=== PATIENT | female | born 1930 | race Caucasian/White ===

== ENCOUNTER → 2017-06-28 | Outpatient (CLI) | payer OTHER ==
[~2017-06-28] MED LIST: DOCU100C31 PO; FENO160T PO; FIBER PO; METF-384 PO; MULT-208 PO; NUTR-977 PO; POLY335019 PO
[2017-06-28 08:26] LABS: HEMATOCRIT 32.7 % (37-47); MEAN CELL VOLUME 87.2 fL (80-100); MEAN CORPUSCULAR HEMOGLOBIN 29.3 pg (25-34); MEAN CORPUSCULAR HGB CONC 33.6 g/dl (32-36); PLATELET COUNT 205 K/uL (130-400); WHITE BLOOD COUNT 5.37 K/uL (4.8-10.8)
[2017-06-28 08:36] LABS: BLOOD UREA NITROGEN 23 mg/dl (7-18); CALCIUM 9.1 mg/dl (8.5-10.1); CARBON DIOXIDE 28 mmol/L (21-32); CREATININE 0.71 mg/dl (0.60-1.20); GLUCOSE 89 mg/dl (70-99); POTASSIUM 3.9 mmol/L (3.5-5.1); SODIUM 141 mmol/L (136-145)
== END | disposition home or self-care (01) ==
LOC: C.LABWYN 08:00
PROVIDERS: ATTEND Internal Medicine
DX: E11.9 Type 2 diabetes mellitus without complications (principal); E78.5 Hyperlipidemia, unspecified; F03.90 Unspecified dementia, unspecified severity, without behavioral disturbance, psychotic disturbance, mood disturbance, and anxiety; I05.9 Rheumatic mitral valve disease, unspecified; M81.0 Age-related osteoporosis without current pathological fracture

== ENCOUNTER 2017-07-06 10:35 | Emergency (ER) | payer OTHER ==
[~2017-07-06] VITALS: Ht 162.6 cm; Wt 58.4 kg
[2017-07-06 10:46] VITALS: Ht 162.6 cm; Wt 58.4 kg
[2017-07-06] MEDS ORDERED: SODIUM CHLORIDE 0.9% 1000ML 1,000 ML IV STA (11:05)
--- NOTE | 2017-07-06 11:17 | EMERGENCY ROOM VISIT NOTE ---
History Report prepared by Sneha: Brian Negron Under the Supervision of: Dr. Chilo Correia D.O. First contact with patient: 11:03 Chief Complaint: DIARRHEA Stated Complaint: DIARRHEA, CONFUSION,HAND TRMORS,LACK OF APPETITE Nursing Triage Summary: "Going to the bathroom all the time". HArd to control with incontinence which is new. Diarrhea started slowly on 06/27 but the past three to four days have been worse. History of Present Illness The patient is a 87 year old female who presents to the Emergency Room with complaints of multiple episodes of diarrhea that began about 1 week ago, but has became more frequent over the past couple of days. She has a past medical history of dementia, borderline diabetes, and a hysterectomy. This HPI is provided by the patient's daughter secondary to her dementia. Prior to two weeks ago, the patient lived on her own. However, two weeks ago she began living in an assisted living facility. Last week, she began not eating like she usually does. Also, her daughter believes that her confusion has been worsening recently as well. The patient is also experiencing about 8 episodes of diarrhea in a span of 2 hours with some intermittent incontinence. She denies any bloody or black colors seen in the stool. She denies any fevers, chills, cough, nausea , vomiting, or leg swelling. She notes that the patient's hands have a tremor as of last week as well which is new. She does not take any blood thinners. The patient was given one dose of Diflucan recently, but no other medication changes. Source of History: family Onset: 1 week ago Position: other (GI) Symptom Intensity: Multiple episodes Quality: other (Diarrhea) Timing: intermittent Associated Symptoms: No fevers, No cough, No nausea, No vomiting, No melena , No hematochezia Note: The patient's daughter believes that her confusion is worsened. She is also experiencing hand tremors. Review of Systems See HPI for pertinent positives & negatives. A total of 10 systems reviewed and were otherwise negative. Past Medical & Surgical Medical Problems: (1) Borderline diabetes (2) Dementia Family History Omitted secondary to the patient's age. Social History Smoking Status: Never Smoker Drug Use: none Marital Status: single Housing Status: lives alone, assisted living Occupation Status: retired Current/Historical Medications Scheduled Enteral Nutrition Formula (Ensure Plus Vanilla), 1 CAN PO BID Fenofibrate (Tricor), 160 MG PO DAILY Metformin Hcl (Glucophage), 1,000 MG PO BID Multiple Vitamins W/ Minerals (Daily Multi), 1 TAB PO DAILY Polyethylene Glycol 3350 (Miralax), 17 GM PO DAILY Scheduled PRN Docusate Sodium (Docusate Sodium), 1 CAP PO DAILY PRN for Constipation Fiber Laxative (Fiber Laxative), 3 CAP PO BID PRN for Constipation Allergies Coded Allergies: Penicillins (Verified Allergy, Unknown, HIVES, 07/06/17) Risedronate (Verified Adverse Reaction, Unknown, GI SYMPTOMS, 07/06/17) Physical Exam Vital Signs Date Time Temp Pulse Resp B/P (MAP) Pulse Ox O2 Delivery O2 Flow Rate FiO2 07/06/17 15:27 36.8 75 18 103/42 97 07/06/17 14:20 75 18 103/42 97 Room Air 07/06/17 12:27 72 16 133/62 Room Air 07/06/17 10:46 36.8 123 18 135/78 95 Room Air Physical Exam GENERAL: Patient is awake, alert, and in no acute distress. Patient is resting comfortably and showing no signs of anxiety EYES: The conjunctivae are clear. The pupils are round and reactive. EARS, NOSE, MOUTH AND THROAT: The nose is without any evidence of any deformity. Mucous membranes are dry tongue is midline NECK: The neck is nontender and supple. RESPIRATORY: Normal respiratory effort is noted there is no evidence of wheezing rhonchi or rales CARDIOVASCULAR: Regular rate and rhythm noted there no murmurs rubs or gallops normal S1 normal S2 GASTROINTESTINAL: The abdomen is soft. Bowel sounds are present in all quadrants. Abdomen is nontender MUSCULOSKELETAL/EXTREMITIES: There is no evidence of gross deformity full range of motion is noted in the hips and shoulders SKIN: There is no obvious evidence of any rash. There are no petechiae, pallor or cyanosis noted. NEUROLOGIC: Patient is at baseline according to her daughter. Medical Decision & Procedures ER Provider Diagnostic Interpretation: Radiology results as stated below per my review and radiologist interpretation: CT OF THE HEAD WITHOUT CONTRAST CLINICAL HISTORY: Altered mental status. COMPARISON STUDY: No previous studies for comparison. CT DOSE: 537.48 mGy.cm TECHNIQUE: Helical axial images of the head were obtained without IV contrast. Automated exposure control was utilized for the study. A dose lowering technique was utilized adhering to the principles of ALARA. FINDINGS: No acute intracranial hemorrhage, midline shift or mass effect is present. Ventricular system is unremarkable for age. Basilar cisterns are patent. There are no extra-axial collections. There is mild atrophy and mild small vessel disease. There are no findings to suggest acute dural sinus thrombosis or acute territorial infarct. There are no significant calvarial abnormalities. Visualized portions of the sinuses and the mastoid air cells are clear. IMPRESSION: No acute intracranial findings. Electronically signed by: Hamlet Dias M.D. 07/06/2017 11:40 AM Dictated Date/Time: 07/06/2017 11:37 AM PA CHEST RADIOGRAPH AND UPRIGHT AND SUPINE AP RADIOGRAPHS OF THE ABDOMEN CLINICAL HISTORY: Diarrhea. Confusion. COMPARISON STUDY: No previous studies for comparison. FINDINGS: Lung volumes are normal. There is no pneumothorax or pleural effusion. There is no evidence for pulmonary edema. Cardiac size is normal. There is mild upper mediastinal widening. There is no free air. There is no evidence for a bowel obstruction. There is a large amount of stool within the rectum. There is a moderate amount stool within the colon. IMPRESSION: 1. No free air or evidence of bowel obstruction. 2. Large amount of stool within the rectum and moderate amount of stool within the colon consistent with fecal retention. 3. No acute cardiopulmonary findings. 4. Mild nonspecific upper mediastinal widening. 5. Possible cholelithiasis. Electronically signed by: Hamlet Dias M.D. 07/06/2017 12:36 PM Dictated Date/Time: 07/06/2017 12:32 PM Laboratory Results 07/06/17 11:10 Red Blood Count 4.35, Mean Corpuscular Volume 87.1, Mean Corpuscular Hemoglobin 29.2, Mean Corpuscular Hemoglobin Concent 33.5, Mean Platelet Volume 11.2, Neutrophils (%) (Auto) 76.4, Lymphocytes (%) (Auto) 9.0, Monocytes (%) (Auto) 14.2, Eosinophils (%) (Auto) 0.1, Basophils (%) (Auto) 0.1, Neutrophils # (Auto ) 6.87, Lymphocytes # (Auto) 0.81, Monocytes # (Auto) 1.28, Eosinophils # (Auto ) 0.01, Basophils # (Auto) 0.01 07/06/17 11:10 Test 07/06/17 11:10 07/06/17 12:00 White Blood Count 9.00 K/uL (4.8-10.8) Red Blood Count 4.35 M/uL (4.2-5.4) Hemoglobin 12.7 g/dL (12.0-16.0) Hematocrit 37.9 % (37-47) Mean Corpuscular Volume 87.1 fL (80-100) Mean Corpuscular Hemoglobin 29.2 pg (25-34) Mean Corpuscular Hemoglobin Concent 33.5 g/dl (32-36) Platelet Count 215 K/uL (130-400) Mean Platelet Volume 11.2 fL (7.4-10.4) Neutrophils (%) (Auto) 76.4 % Lymphocytes (%) (Auto) 9.0 % Monocytes (%) (Auto) 14.2 % Eosinophils (%) (Auto) 0.1 % Basophils (%) (Auto) 0.1 % Neutrophils # (Auto) 6.87 K/uL (1.4-6.5) Lymphocytes # (Auto) 0.81 K/uL (1.2-3.4) Monocytes # (Auto) 1.28 K/uL (0.11-0.59) Eosinophils # (Auto) 0.01 K/uL (0-0.5) Basophils # (Auto) 0.01 K/uL (0-0.2) RDW Standard Deviation 43.8 fL (36.4-46.3) RDW Coefficient of Variation 13.7 % (11.5-14.5) Immature Granulocyte % (Auto) 0.2 % Immature Granulocyte # (Auto) 0.02 K/uL (0.00-0.02) Prothrombin Time 10.6 SECONDS (9.0-12.0) Prothromb Time International Ratio 1.0 (0.9-1.1) Activated Partial Thromboplast Time 26.3 SECONDS (21.0-31.0) Partial Thromboplastin Ratio 1.0 Anion Gap 6.0 mmol/L (3-11) Est Creatinine Clear Calc Drug Dose 41.5 ml/min Estimated GFR () 72.9 Estimated GFR (Non- 62.9 BUN/Creatinine Ratio 35.2 (10-20) Calcium Level 9.8 mg/dl (8.5-10.1) Magnesium Level 1.5 mg/dl (1.8-2.4) Total Bilirubin 0.4 mg/dl (0.2-1) Direct Bilirubin 0.1 mg/dl (0-0.2) Aspartate Amino Transf (AST/SGOT) 17 U/L (15-37) Alanine Aminotransferase (ALT/SGPT) 24 U/L (12-78) Alkaline Phosphatase 34 U/L (45-117) Total Creatine Kinase 142 U/L (26-192) Creatine Kinase MB 1.0 ng/ml (0.5-3.6) Creatine Kinase MB Ratio 0.7 (0-3.0) Troponin I < 0.015 ng/ml (0-0.045) Total Protein 7.2 gm/dl (6.4-8.2) Albumin 3.7 gm/dl (3.4-5.0) Lipase 92 U/L (73-393) Thyroid Stimulating Hormone (TSH) 0.136 uIu/ml (0.300-4.500) Free Thyroxine 1.52 ng/dl (0.80-1.60) Urine Color DK YELLOW Urine Appearance CLEAR (CLEAR) Urine pH 5.0 (4.5-7.5) Urine Specific [place] 1.024 (1.000-1.030) Urine Protein NEG (NEG) Urine Glucose (UA) NEG (NEG) Urine Ketones TRACE (NEG) Urine Occult Blood NEG (NEG) Urine Nitrite NEG (NEG) Urine Bilirubin NEG (NEG) Urine Urobilinogen NEG (NEG) Urine Leukocyte Esterase NEG (NEG) Laboratory results per my review. Medications Administered Medications (Trade) Dose Ordered Sig/Natali Route Start Time Stop Time Status Last Admin Dose Admin Sodium Chloride 1,000 ml @ 999 mls/hr Q1H1M STAT IV 07/06/17 11:05 07/06/17 12:05 DC 07/06/17 11:05 999 MLS/HR Magnesium Sulfate (Magnesium Sulfate) 2 gm NOW STAT IV 07/06/17 12:00 07/06/17 12:01 DC 07/06/17 12:30 2 GM Miscellaneous (Soap Suds Enema) 1 ea ONE STAT [place] 07/06/17 13:00 07/06/17 13:02 DC 07/06/17 13:00 1 EA ECG Per My Interpretation Indication: altered mental status Rate (beats per minute): 99 Rhythm: sinus rhythm Findings: PAC, PVC, other (Diffuse t-wave flattening) Comparison ECG Date: no prior available ED Course 1103: The patient was evaluated in room C3. A complete history and physical examination were performed. 1105: Ordered NSS 1,000 ml @ 999 mls/hr IV 1200: Ordered Magnesium Sulfate 2 gm IV 1300: Ordered Soap Suds Enema 1 ea [place] 1510: Upon reevaluation, the patient is resting. I discussed the results and treatment plan with her daughter. She verbalized agreement of the treatment plan. The patient was discharged home. Medical Decision Differential diagnosis: Etiologies such as metabolic, infection, hypo/hyperglycemia, electrolyte abnormalities, cardiac sources, intracerebral event, toxicologic, neurologic, as well as others were entertained. Nursing notes reviewed. Additional history is obtained from the patient's daughter. The patient is an 87-year-old female who presented to the emergency department for evaluation of diarrhea. The patient has been ongoing with loose bowel movements for quite some time. She has severe dementia and much of the history was obtained from the daughters. On exam the patient did not have a surgical abdomen and radiographically the patient has severe fecal impaction. She was treated with disimpaction as well as enema in the emergency department with good results. She was also treated with IV magnesium. I discussed the patient' s laboratory and radiographic studies with her daughters. The patient was started on MiraLAX. She was encouraged to follow-up with a primary care physician through the [facility] as soon as possible and return if symptoms change worsen or the need arises. Medication Reconcilliation Current Medication List: was personally reviewed by me Blood Pressure Screening Patient's blood pressure: Elevated blood pressure Blood pressure disposition: Referred to PCP Impression Primary Impression: Fecal impaction Additional Impression: Hypomagnesemia Scribe Attestation The scribe's documentation has been prepared under my direction and personally reviewed by me in its entirety. I confirm that the note above accurately reflects all work, treatment, procedures, and medical decision making performed by me. Departure Information Dispostion Home / Self-Care Prescriptions Polyethylene Glycol 3350 (MIRALAX) 1 Pow Pow 17 GM PO DAILY, #527 GM Prov: Chilo Correia, 07/06/17 Referrals BRODY CABRERA (PCP) Forms HOME CARE DOCUMENTATION FORM, IMPORTANT VISIT INFORMATION, WORK / SCHOOL INSTRUCTIONS Patient Instructions Constipation, [facility] Additional Instructions Continue all medications as prescribed. Follow-up with primary care physician as soon as possible. Problem Qualifiers
[2017-07-06 11:33] LABS: BASO % 0.1 %; BASO ABS # 0.01 K/uL (0-0.2); EOS % 0.1 %; EOS ABS # 0.01 K/uL (0-0.5); HEMATOCRIT 37.9 % (37-47); HEMOGLOBIN 12.7 g/dL (12.0-16.0); IG# 0.02 K/uL (0.00-0.02); LYMPH ABS # 0.81 K/uL (1.2-3.4); MEAN CELL VOLUME 87.1 fL (80-100); MEAN CORPUSCULAR HEMOGLOBIN 29.2 pg (25-34); MEAN CORPUSCULAR HGB CONC 33.5 g/dl (32-36); MEAN PLATELET VOLUME 11.2 fL (7.4-10.4); MONO % 14.2 %; MONO ABS # 1.28 K/uL (0.11-0.59); NEUT % 76.4 %; NEUT ABS # 6.87 K/uL (1.4-6.5); PLATELET COUNT 215 K/uL (130-400); RED CELL DISTRIBUTION WIDTH CV 13.7 % (11.5-14.5); RED CELL DISTRIBUTION WIDTH SD 43.8 fL (36.4-46.3)
--- NOTE | 2017-07-06 11:41 | DIAGNOSTIC IMAGING REPORT ---
CT OF THE HEAD WITHOUT CONTRAST CLINICAL HISTORY: Altered mental status. COMPARISON STUDY: No previous studies for comparison. CT DOSE: 537.48 mGy.cm TECHNIQUE: Helical axial images of the head were obtained without IV contrast. Automated exposure control was utilized for the study. A dose lowering technique was utilized adhering to the principles of ALARA. FINDINGS: No acute intracranial hemorrhage, midline shift or mass effect is present. Ventricular system is unremarkable for age. Basilar cisterns are patent. There are no extra-axial collections. There is mild atrophy and mild small vessel disease. There are no findings to suggest acute dural sinus thrombosis or acute territorial infarct. There are no significant calvarial abnormalities. Visualized portions of the sinuses and the mastoid air cells are clear. IMPRESSION: No acute intracranial findings. Electronically signed by: Hamlet Dias M.D. 07/06/2017 11:40 AM Dictated Date/Time: 07/06/2017 11:37 AM
[2017-07-06 11:42] LABS: PTT PATIENT 26.3 SECONDS (21.0-31.0)
[2017-07-06 11:52] LABS: ALBUMIN 3.7 gm/dl (3.4-5.0); ALT/SGPT 24 U/L (12-78); AST/SGOT 17 U/L (15-37); BLOOD UREA NITROGEN 30 mg/dl (7-18); CALCIUM 9.8 mg/dl (8.5-10.1); CARBON DIOXIDE 29 mmol/L (21-32); CREATININE 0.84 mg/dl (0.60-1.20); GLUCOSE 127 mg/dl (70-99); LIPASE 92 U/L (73-393); POTASSIUM 3.9 mmol/L (3.5-5.1); SODIUM 140 mmol/L (136-145)
[2017-07-06] MEDS ORDERED: MAGNESIUM SULFATE 1GM / D5W 1 GM BAG IV STA (12:00)
[2017-07-06 12:01] LABS: ALKALINE PHOSPHATASE 34 U/L (45-117); TOTAL PROTEIN 7.2 gm/dl (6.4-8.2)
[2017-07-06] MEDS ORDERED: MULT-208 PO (12:27)
[2017-07-06] MEDS ORDERED: FENO160T PO (12:27)
[2017-07-06] MEDS ORDERED: METF-384 PO (12:27)
[2017-07-06] MEDS ORDERED: NUTR-977 PO (12:27)
[2017-07-06] MEDS ORDERED: DOCU100C31 PO (12:27)
[2017-07-06] MEDS ORDERED: FIBER PO (12:27)
--- NOTE | 2017-07-06 12:37 | DIAGNOSTIC IMAGING REPORT ---
PA CHEST RADIOGRAPH AND UPRIGHT AND SUPINE AP RADIOGRAPHS OF THE ABDOMEN CLINICAL HISTORY: Diarrhea. Confusion. COMPARISON STUDY: No previous studies for comparison. FINDINGS: Lung volumes are normal. There is no pneumothorax or pleural effusion. There is no evidence for pulmonary edema. Cardiac size is normal. There is mild upper mediastinal widening. There is no free air. There is no evidence for a bowel obstruction. There is a large amount of stool within the rectum. There is a moderate amount stool within the colon. IMPRESSION: 1. No free air or evidence of bowel obstruction. 2. Large amount of stool within the rectum and moderate amount of stool within the colon consistent with fecal retention. 3. No acute cardiopulmonary findings. 4. Mild nonspecific upper mediastinal widening. 5. Possible cholelithiasis. Electronically signed by: Hamlet Dias M.D. 07/06/2017 12:36 PM Dictated Date/Time: 07/06/2017 12:32 PM
[2017-07-06] MEDS ORDERED: SOAP SUDS ENEMA PR STA (13:00)
[2017-07-06] MEDS ORDERED: POLY335019 PO (14:44)
[2017-07-06 15:27] VITALS: BP 103/42; PULSE 75; TEMP 36.8; O2SAT 97
== END 2017-07-06 15:28 | disposition home or self-care (01) ==
LOC: C.EDB 10:37 → C.EDC 15:28
DX: K56.41 Fecal impaction (principal); E83.42 Hypomagnesemia; F03.90 Unspecified dementia, unspecified severity, without behavioral disturbance, psychotic disturbance, mood disturbance, and anxiety; R73.03 Prediabetes; Z79.84 Long term (current) use of oral hypoglycemic drugs; Z88.0 Allergy status to penicillin; Z88.8 Allergy status to other drugs, medicaments and biological substances

== ENCOUNTER → 2017-07-18 | Outpatient (CLI) | payer OTHER | END | disposition home or self-care (01) | LOC: C.LABWYN 11:27 | PROVIDERS: ATTEND Internal Medicine | DX: E03.9 Hypothyroidism, unspecified (principal) ==

== ENCOUNTER → 2017-09-10 | Outpatient (CLI) | payer OTHER | END | disposition home or self-care (01) | LOC: C.LABWYN 17:24 | PROVIDERS: ATTEND Internal Medicine | DX: E03.9 Hypothyroidism, unspecified (principal) ==

== ENCOUNTER → 2017-12-16 | Outpatient (CLI) | payer OTHER ==
[~2017-12-16] MED LIST changes: -POLY335019 PO; +SENN-65 PO
== END | disposition home or self-care (01) ==
LOC: C.LAB1850 13:41
PROVIDERS: ATTEND Internal Medicine Endocrinology, Diabetes & Metabolism
DX: E05.90 Thyrotoxicosis, unspecified without thyrotoxic crisis or storm (principal)

== ENCOUNTER 2019-01-29 17:36 | Inpatient (IN) ==
[2019-01-29 19:02] LABS: Basophils # (auto) 0.02 K/uL (0-0.2); Basophils % (auto) 0.3 %; Eosinophils # (auto) 0.03 K/uL (0-0.5); Eosinophils % (auto) 0.4 %; Hemoglobin 9.6 g/dL (12.0-16.0); Immature Granulocytes # (auto) 0.01 K/uL (0.00-0.02); Immature Granulocytes % (auto) 0.1 %; Lymphocytes % (auto) 15.6 %; Mean Corpuscular Hemoglobin 28.5 pg (25-34); Mean Corpuscular Hgb Conc 33.1 g/dL (32-36); Mean Corpuscular Volume 86.1 fL (80-100); Mean Platelet Volume 10.5 fL (7.4-10.4); Monocytes # (auto) 0.82 K/uL (0.11-0.59); Monocytes % (auto) 11.6 %; Neutrophils # (auto) 5.07 K/uL (1.4-6.5); Platelet Count 195 K/uL (130-400); RDW Coefficient of Variation 15.3 % (11.5-14.5); RDW Standard Deviation 48.1 fL (36.4-46.3); Red Blood Count 3.37 M/uL (4.2-5.4); White Blood Count 7.05 K/uL (4.8-10.8)
--- NOTE | 2019-01-29 19:11 | CT Scan Report ---
CT OF THE HEAD WITHOUT CONTRAST CLINICAL HISTORY: Fall. COMPARISON STUDY: No previous studies for comparison. CT DOSE: 773.57 mGy.cm TECHNIQUE: Helical axial images of the head were obtained without IV contrast. Automated exposure con trol was utilized for the study. A dose lowering technique was utilized adhering to the principles o f ALARA. FINDINGS: No acute intracranial hemorrhage, midline shift or mass effect is present. The ventricular system is stable. The basilar cisterns are patent. No extra-axial collections are present. There are no findings to suggest acute dural sinus thrombosis or acute territorial infarct. No significant calv arial abnormalities are present. Visualized portions of the sinuses and mastoid air cells are clear. White matter hypodensities represent small vessel disease. IMPRESSION: 1. No acute intracranial findings. 2. No calvarial fracture. Electronically signed by: Hamlet Dias M.D. 01/29/2019 7:10 PM
[2019-01-29 19:13] LABS: Prothrombin Time 9.9 Seconds (9.0-12.0)
[2019-01-29 19:20] LABS: Alanine Aminotransferase 15 U/L (12-78); Albumin Level 3.3 gm/dl (3.4-5.0); Aspartate Aminotransferase 16 U/L (15-37); BUN Creatinine Ratio 29.2 (10-20); Blood Urea Nitrogen 29 mg/dl (7-18); Calcium 9.8 mg/dl (8.5-10.1); Carbon Dioxide 25 mmol/L (21-32); Chloride 104 mmol/L (98-107); Est GFR (African American) 60.1; Est GFR (Non-African American) 51.9; Glucose 126 mg/dl (70-99); Potassium 4.1 mmol/L (3.5-5.1); Sodium 137 mmol/L (136-145)
[2019-01-29 19:23] LABS: Albumin Globulin Ratio 1.1 (0.9-2); Alkaline Phosphatase 32 U/L (45-117); Bilirubin,Total 0.4 mg/dl (0.2-1); Total Protein 6.3 gm/dl (6.4-8.2)
--- NOTE | 2019-01-29 19:29 | XRay Report ---
XR knee RT 3V CLINICAL HISTORY: Fall. COMPARISON: None FINDINGS: Alignment of the right knee is anatomic. No acute fracture is visualized. There is no righ t knee joint effusion. IMPRESSION: No acute fracture or joint effusion within the right knee. Electronically signed by: Hamlet Dias M.D. 01/29/2019 7:27 PM
--- NOTE | 2019-01-29 19:31 | XRay Report ---
RIGHT HAND 3 VIEWS HISTORY: Right hand pain. fall eval for fx COMPARISON: None. FINDINGS: There is no fracture or dislocation. Mild dorsal soft tissue swelling at the base of the camp nd. Moderate degenerative changes within the right hand. Deformity within the fifth digit is likely c hronic. No radiopaque foreign bodies. The bones are osteopenic. IMPRESSION: 1. No acute fractures within the right hand. 2. Deformity within the right fifth digit is likely chronic. Clinical correlation recommended. Electronically signed by: Bill Davis M.D. 01/29/2019 7:30 PM
--- NOTE | 2019-01-29 19:36 | XRay Report ---
XR hip RT min 2V CLINICAL HISTORY: Fall. COMPARISON: None FINDINGS: Note is made of an acute displaced fracture of the greater trochanter of the right femur. Fracture is displaced 1.2 cm. A lucency projects over the intertrochanteric region which could reflec t a nondisplaced intertrochanteric portion. Lesser trochanter appears intact. IMPRESSION: Acute mildly displaced fracture of the greater trochanter with possible nondisplaced inte rtrochanteric component. A CT of the right hip could be obtained. Electronically signed by: Hamlet Dias M.D. 01/29/2019 7:35 PM
--- NOTE | 2019-01-29 19:38 | XRay Report ---
XR femur RT 2V routine, XR tibia fibula RT 2V CLINICAL HISTORY: fall eval for injury. Right leg pain. COMPARISON STUDY: None. FINDINGS: The visualized pelvic bones are intact. No dislocation within the right femur or right lowe r leg. There is a distracted fracture at the tip of the greater trochanter. This demonstrates up to 1 cm of distraction. This does not extend to the intertrochanteric location. Equivocal intertrochanter ic hairline fracture. No fracture or dislocation within the right tibia or right fibula. IMPRESSION: 1. Distracted fracture at the tip of the greater trochanter. There is an equivocal intertrochanteric hairline fracture. Recommend dedicated right hip CT for further evaluation. 2. No fracture or dislocation within the right lower leg. Electronically signed by: Bill Davis M.D. 01/29/2019 7:36 PM
[2019-01-29 20:49] LABS: Appearance Urine Cloudy (Clear); Bacteria Urine Automated Negative (Negative); Bilirubin Urine Negative (Negative); Blood Urine Negative (Negative); Color Urine Yellow; Glucose Urine UA Negative (Negative); Ketones Urine Negative (Negative); Leukocyte Esterase Urine Negative (Negative); Nitrite Urine Negative (Negative); Protein Urine Negative (Negative); Specific Gravity Urine 1.017 (1.000-1.030); Urobilinogen Urine Negative (Negative); WBC Urine Automated 0 /hpf (0-5)
--- NOTE | 2019-01-29 22:04 | CT Scan Report ---
RIGHT HIP CT CT DOSE: 325.84 mGy.cm HISTORY: right hip fx TECHNIQUE: Multiaxial CT images of the right hip were performed and reformatted in the sagittal and c oronal plane without the use of contrast. A dose lowering technique was utilized adhering to the [facility]. COMPARISON: Right hip 01/29/2019. FINDINGS: The bladder is decompressed by Felix catheter. There is a large stool ball within the rectu m which measures 11 cm in diameter. No dislocation within the right hip. The visualized pelvic bones are intact. Soft tissue contusion within the lateral right hip. Comminuted fracture at the greater tr ochanter which demonstrates up to 11 mm of posterior displacement. The fracture line extends posterio rly at the base of the greater trochanter and along the posterior cortex of the base of the femoral n kris. The fracture does not clearly extend to the lesser trochanter. IMPRESSION: Comminuted fracture within the greater trochanter which extends to the base of the greater trochanter and along the posterior cortex of the base of the right femoral neck. Orthopedic consultation is sug gested for possible internal fixation given the involvement of the femoral neck base. Electronically signed by: Bill Davis M.D. 01/29/2019 10:03 PM
[2019-01-29] MEDS ORDERED: LOPERAMIDE HCL 2 MG CAP PO PRN (22:05)
[2019-01-29] MEDS ORDERED: DOCUSATE SODIUM 100 MG CAP PO PRN (22:05)
[2019-01-29] MEDS ORDERED: ONDANSETRON INJ 2 MG/ML 2 ML VIAL IV PRN (22:05)
[2019-01-29] MEDS ORDERED: NON-FORMULARY MEDICATION (Food Supplemt, Lactose-Reduced [Ensure] 1 EA) PO SCH (22:05)
[2019-01-29] MEDS ORDERED: DOCUSATE SODIUM/SENNA 50/8.6MG TAB PO PRN (22:05)
[2019-01-29] MEDS ORDERED: ACETAMINOPHEN 325 MG TAB PO PRN (22:05)
[2019-01-29] MEDS ORDERED: MoRPHine SULFATE 2 MG/ML CARP IV PRN (22:05)
--- NOTE | 2019-01-29 22:15 | History and Physical Report ---
DATE OF ADMISSION: 01/29/2019 CHIEF COMPLAINT: Right hip fracture, ambulatory dysfunction. HISTORY OF PRESENT ILLNESS: This is an 88-year-old female with past medical history significant for severe dementia, oriented to name only, recognizes family. Ambulates without any help. Currently [facility] resident, history of diabetes, hyperlipidemia, history of brief episode of atrial fibrillation recently, on diltiazem, not on anticoagulation, who was brought in because of ambulatory dysfunction. The patient started to limp yesterday little bit but able to walk okay, but today she was having difficulty ambulating and have painful right leg movements, so she was brought in here and x-ray shows right hip fracture. The patient does not remember any falling down. She has severe dementia. She can tell her name, but she does not know where she is. Can recognizes family.Denies any complaints. Daughter is in the room, patient is a DNI as per daughter. The patient recently was in [place] for vacation and admitted to hospital from sepsis with urinary tract infection and biliary stones with cholangitis and at that time biliary stents were placed and surgery was not done because of her risk factors and biliary stent was recently removed here in [facility]. During that admission, she also had brief atrial fibrillation for a day, but was not put on anticoagulation but diltiazem is continued. She recently also had her upper row of teeth removed and dentures placed so she is eating only soft foods now and she is supposed to see a dentist again. Otherwise, she swallows okay. No fever, no chills. Sleeps okay, usually ambulates without any help. Recently the ambulation was slightly weak because of the recent sepsis. She is constipated and requires stool softeners. Normal bladder movements. Afebrile. No cough. Vision is okay. Hearing is okay. Currently resting comfortably and hemodynamically stable. Denies any pain. Could not get any history from the patient as the patient has severe dementia. ALLERGIES: ACTONEL AND PENICILLINS. PAST MEDICAL HISTORY: As mentioned above. PAST SURGICAL HISTORY: She has ERCP. She has total hysterectomy. Surgical removal of the upper teeth. MEDICATIONS: The patient currently on diltiazem 120 mg p.o. daily, Colace 100 mg p.o. daily p.r.n., Ensure 1 can p.o. b.i.d., fenofibrate 160 mg p.o. a.m., Imodium p.r.n., metformin 1000 mg p.o. a.m., methimazole 5 mg p.o. 5 times a week and methimazole 2.5 mg 2 times a week, multivitamin 1 tablet daily, Senokot-S 2 tablets daily p.r.n. FAMILY HISTORY: Father had diabetes. Mother had stroke. Brother had diabetes. SOCIAL HISTORY: , currently living at [facility]. No smoking history. Alcohol, used to drink 1, rarely in the past. No drug use. REVIEW OF SYMPTOMS: As per HPI. Review of systems unobtainable as the patient has severe dementia. PHYSICAL EXAMINATION: GENERAL: The patient is alert and awake and oriented to name only, not in acute distress. VITAL SIGNS: Temperature 37.1, pulse 85, respiratory rate 18, blood pressure 111/71, oxygen 94% room air. HEENT: No pallor, no icterus. Pupils equal, round, reactive to light. NECK: No JVD, no neck masses, no carotid bruits. CARDIOVASCULAR: S1, S2 heard, regular rate and rhythm. Murmur in mitral area. RESPIRATORY SYSTEM: Normal AP diameter. No accessory muscle use. No wheezing, no crackles. ABDOMEN: Soft, bowel sounds present, nontender. No distention. CENTRAL NERVOUS SYSTEM: Alert and oriented to name only. Moves extremities. EXTREMITIES: Right lower extremity is slightly shortened. No edema, no erythema seen. LABORATORIES DATA: WBC 7, hemoglobin 9.6, hematocrit 29, platelets 195. PT 9.9, INR 1, APTT 26. Sodium 137, potassium 4.1, chloride 104, bicarbonate 25, BUN 29, creatinine 0.9, serum glucose 126, calcium 9.8, total bilirubin 0.4, AST 16, ALT 15, alkaline phosphatase 32. Urinalysis negative. Hand x-ray right side, no acute fractures identified. Tibia, fibula x-ray on the right side distracted fracture of the tip of the greater trochanter. Knee x-ray on the right, no acute fracture or effusion seen. Right hip x-ray, acute mildly displaced fracture of the greater trochanter with possible nondisplaced intertrochanteric component. A CT of the right hip could be obtained. CT of the head, no acute intracranial findings. Right femur x-ray, displaced fracture tip of the greater trochanter. There is equivocal intertrochanteric hairline fracture. Recommend to get a right hip CT for further evaluation. EKG: Sinus rhythm with sinus arrhythmia with occasional PVCs at a rate of 72, left axis deviation, no acute ST changes seen. Chest Xray: No acute findings. ASSESSMENT AND PLAN: This is an 88-year-old female with severe dementia, presents with right ambulatory dysfunction and right hip fracture. 1. Ambulatory dysfunction, right hip fracture. The patient has severe dementia, could not tell that if she fell or not, she has some bruise on the right knee,. She is resident of [facility]. She has some limping yesterday, but today she could not walk, painful right lower extremity movements. Imaging studies shows right hip fracture of the greater trochanter, possible nondisplaced intertrochanteric component, will also get a CT of the right hip. We will keep n.p.o. after midnight, gentle fluids, IV morphine p.r.n. Because the patient has severe dementia and the age, the patient will be at least moderate risk for any procedures and will consult Orthopedics for possible surgical intervention. Ortho consulted and notified. 2. History of episode of atrial fibrillation when she was sick at vacation with cholangitis and sepsis. On diltiazem, which is continued, not on anticoagulation, at that time a biliary stent was placed, which was recently removed. She still has gallstones, but surgery was not contemplated at that time. 3. History of diabetes, on metformin. Hold metformin, place insulin sliding scale.follow hba1c levels 4. History of hyperthyroidism. Continue methimazole. 5. History of hyperlipidemia: Continue fenofibrate. 6. Severe dementia. Monitor for any delirium. The family says she has history of taking IV lines out. 7. Anemia chronic. Hb 9.6. Baseline 10-11. Will follow heme occult. Follow labs. 8. Mitral valve prolapse? Will follow routine echo. 9. Deep venous thrombosis prophylaxis. Could not place the SCDs because of the hip fracture and no anticoagulation placed because of the plan for any surgical procedures. Further deep venous thrombosis prophylaxis as per Orthopedics. Admit to medical floor. PT and OT prior to discharge. Expect discharge back to [facility] when the patient is stable. Social Service to help with discharge planning. 10.. Code status: DNI as per my discussion with the daughter. SANDEEP
[2019-01-29] MEDS: SODIUM CHLORIDE 0.9% 1000ML 1,000 ML IV SCH (22:35)
--- NOTE | 2019-01-29 23:12 | Emergency Department Note ---
Entered by Rayna Tubbs acting as a scribe for History of Present Illness General Chief complaint: Fall Stated complaint: FELL, CANT WALK Source: family (daughter) Limitations: other (Dementia and severe memory loss) History of Present Illness Onset (ago): day(s) (yesterday) Location: right (leg ) Pain Consistency: + other (after a suspected fall) Quality: + other (right leg pain) Associated symptoms: + other (Negative neck pain, abdominal pain, difficulty ambulating, pain in her right leg); no chest pain The patient is a 88 year old female who presents to the ED with complaints of right leg pain beginning yesterday. She is accompanied by her daughter who reports her mother lives at [facility] and has dementia. She thinks she probably fell yesterday. Yesterday, she reports staff told her that her mother was limping and today, it worsened. Her daughter states her mother's right knee and femur appear to be hurting and her right knee is bruised. Her daughter denies her mother having any fevers or vomiting. The patient denies any neck pain, chest pain, abdominal pain, SOB, difficulty ambulating, pain in her right leg. Pt is not on any blood thinners. HPI and ROS due to the patients dementia. Home Medications Home Medications Medication Instructions Recorded Confirmed Type fenofibrate 160 mg PO QAM 11/13/18 01/29/19 History loperamide [Imodium A-D] 2 mg PO BID PRN 11/13/18 01/29/19 History metformin 1,000 mg PO QAM 11/13/18 01/29/19 History methimazole 5 mg PO 5XWK 11/13/18 01/29/19 History multivitamin [Daily-Pierre] 1 tab PO DAILY 11/13/18 01/29/19 History Ensure 1 ea PO BID 12/20/18 01/29/19 History diltiazem HCl 120 mg PO QAM 12/20/18 01/29/19 History docusate sodium [Doc-Q-Lace] 100 mg PO DAILY PRN 12/20/18 01/29/19 History methimazole 2.5 mg PO 2XWK 12/20/18 01/29/19 History sennosides-docusate sodium 2 tab PO DAILY PRN 12/20/18 01/29/19 History [Senna-S] Allergies Allergy/AdvReac Type Severity Reaction Status Date / Time Penicillins Allergy Intermediate HIVES Verified 01/29/19 18:25 risedronate sodium AdvReac Intermediate GI SYMPTOMS Verified 01/29/19 18:25 Past Med/Surg History Medical History Borderline diabetes (Chronic) Dementia (Chronic) daughters, Vielka & Toya (POA) to sign any paperwork for patient (per [facility] staff) Diabetes mellitus, type 2 niddm Hyperlipidemia Hyperthyroidism Mitral valve disorder Osteoporosis Surgical History History of ERCP stent placed on common bile duct (reason for procedure 01/2019) History of hysterectomy Family History Other No pertinent family history Social History Preferred Language: Hong Konger Communication Ability: Effective 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 Other (HPI and ROS due to the patients dementia) Physical Exam Vital Signs Vital Signs - 24 hr 01/29/19 17:43 01/29/19 19:50 Temperature 37.1 C Temperature Source Oral Sepsis Recent Fever Within 48 Hours No Sepsis New/Unexplained Change in Mental Status No Sepsis Action Taken by Nursing No Action Required Pulse Rate 90 Pulse Rate [Apical] 85 Respiratory Rate 20 18 Blood Pressure 112/58 L Blood Pressure [Right Arm] 111/71 Blood Pressure Mean 76 Blood Pressure Mean [Right Arm] 84 Pulse Oximetry 97 94 Oxygen Delivery Method Room Air Room Air Constitutional: Vital signs reviewed. Eyes: Pupils are equal round reactive to light. Conjunctiva are noninjected. ENT: Pharynx is clear without erythema or exudate. Mucous membranes are moist. Neck supple without meningeal signs. Normocephalic. Atraumatic Respiratory: Clear to auscultation bilaterally. Breath sounds are equal bilaterally. Cardiovascular: Regular rate and rhythm. No rubs or gallops. GI: Soft, nondistended and nontender. Bowel sounds are present. Musculoskeletal: No discrete tenderness to the RLE but pain with ROM of the knee and hip. Bruise to the right anterior lower knee. No joint laxity. No tenderness to the ankle. Integumentary: No cyanosis. Neurological: The patient is awake and alert. No focal deficits. Psychiatric: Normal affect. Course 175: Past medical records reviewed. The patient was evaluated in room C11. A complete history and physical exam was performed. 2006: [facility] The patient will be evaluated by him for further management. Administered Medications Sodium Chloride (Nss 1000ml) 1,000 mls @ 75 mls/hr IV .[id number] BEVERLY Stop: 02/28/19 22:04 Last Admin: 01/29/19 22:35 Dose: 75 mls/hr Documented by: [id number] Medical Decision Making Differential Diagnosis The differential diagnoses include hip fracture, femur fracture, strain, pelvis fracture, head injury, anemia, fall, as well as others were entertained. Medical Records Attestation: I reviewed the patient's medical records. I did perform a limited focused review of portions of the patient's old chart on the electronic medical record. The patient has had no recent pertinent visits to this hospital. Home Medications Current Medication List: was personally reviewed by me Laboratory Data Attestation: I reviewed the patient's lab results. Result diagrams: 01/29/19 18:42 01/29/19 18:42 Lab Results 01/29/19 01/29/19 01/29/19 Range/Units 18:42 18:42 18:42 WBC 7.05 (4.8-10.8) K/uL RBC 3.37 L (4.2-5.4) M/uL Hgb 9.6 L (12.0-16.0) g/dL Hct 29.0 L (37-47) % MCV 86.1 (80-100) fL MCH 28.5 (25-34) pg MCHC 33.1 (32-36) g/dL RDW Std Deviation 48.1 H (36.4-46.3) fL RDW Coeff of Joshua 15.3 H (11.5-14.5) % Plt Count 195 (130-400) K/uL MPV 10.5 H (7.4-10.4) fL Immature Gran % (Auto) 0.1 % Neut % (Auto) 72.0 % Lymph % (Auto) 15.6 % Free[place] % (Auto) 11.6 % Eos % (Auto) 0.4 % Baso % (Auto) 0.3 % Immature Gran # (Auto) 0.01 (0.00-0.02) K/uL Neut # (Auto) 5.07 (1.4-6.5) K/uL Lymph # (Auto) 1.10 L (1.2-3.4) K/uL Free[place] # (Auto) 0.82 H (0.11-0.59) K/uL Eos # (Auto) 0.03 (0-0.5) K/uL Baso # (Auto) 0.02 (0-0.2) K/uL PT 9.9 (9.0-12.0) Seconds INR 1.0 (0.9-1.1) APTT 26.0 (21.0-31.0) Seconds PTT Ratio 1.0 Sodium 137 (136-145) mmol/L Potassium 4.1 (3.5-5.1) mmol/L Chloride 104 (98-107) mmol/L Carbon Dioxide 25 (21-32) mmol/L Anion Gap 8.0 (3-11) BUN 29 H (7-18) mg/dl Creatinine 0.98 (0.6-1.2) mg/dl Est Cr Clr Drug Dosing Not Reportable Est GFR ( Amer) 60.1 Est GFR (Non-Af Amer) 51.9 BUN/Creatinine Ratio 29.2 H (10-20) Glucose 126 H (70-99) mg/dl Calcium 9.8 (8.5-10.1) mg/dl Total Bilirubin 0.4 (0.2-1) mg/dl AST 16 (15-37) U/L ALT 15 (12-78) U/L Alkaline Phosphatase 32 L (45-117) U/L Total Protein 6.3 L (6.4-8.2) gm/dl Albumin 3.3 L (3.4-5.0) gm/dl Globulin 3.0 (2.5-4.0) gm/dl Albumin/Globulin Ratio 1.1 (0.9-2) Urine Color Urine Appearance (Clear) Urine pH (4.5-7.5) Ur Specific [place] (1.000-1.030) Urine Protein (Negative) Urine Glucose (UA) (Negative) Urine Ketones (Negative) Urine Blood (Negative) Urine Nitrite (Negative) Urine Bilirubin (Negative) Urine Urobilinogen (Negative) Ur Leukocyte Esterase (Negative) Urine WBC (Auto) (0-5) /hpf Urine RBC (Auto) (0-4) /hpf U Hyaline Cast (Auto) (0-5) /lpf U Epithel Cells (Auto) (0-5) /lpf Urine Bacteria (Auto) (Negative) 01/29/19 Range/Units 20:40 WBC (4.8-10.8) K/uL RBC (4.2-5.4) M/uL Hgb (12.0-16.0) g/dL Hct (37-47) % MCV (80-100) fL MCH (25-34) pg MCHC (32-36) g/dL RDW Std Deviation (36.4-46.3) fL RDW Coeff of Joshua (11.5-14.5) % Plt Count (130-400) K/uL MPV (7.4-10.4) fL Immature Gran % (Auto) % Neut % (Auto) % Lymph % (Auto) % Free[place] % (Auto) % Eos % (Auto) % Baso % (Auto) % Immature Gran # (Auto) (0.00-0.02) K/uL Neut # (Auto) (1.4-6.5) K/uL Lymph # (Auto) (1.2-3.4) K/uL [place] # (Auto) (0.11-0.59) K/uL Eos # (Auto) (0-0.5) K/uL Baso # (Auto) (0-0.2) K/uL PT (9.0-12.0) Seconds INR (0.9-1.1) APTT (21.0-31.0) Seconds PTT Ratio Sodium (136-145) mmol/L Potassium (3.5-5.1) mmol/L Chloride (98-107) mmol/L Carbon Dioxide (21-32) mmol/L Anion Gap (3-11) BUN (7-18) mg/dl Creatinine (0.6-1.2) mg/dl Est Cr Clr Drug Dosing Est GFR ( Amer) Est GFR (Non-Af Amer) BUN/Creatinine Ratio (10-20) Glucose (70-99) mg/dl Calcium (8.5-10.1) mg/dl Total Bilirubin (0.2-1) mg/dl AST (15-37) U/L ALT (12-78) U/L Alkaline Phosphatase (45-117) U/L Total Protein (6.4-8.2) gm/dl Albumin (3.4-5.0) gm/dl Globulin (2.5-4.0) gm/dl Albumin/Globulin Ratio (0.9-2) Urine Color Yellow Urine Appearance Cloudy A (Clear) Urine pH 5.0 (4.5-7.5) Ur Specific [place] 1.017 (1.000-1.030) Urine Protein Negative (Negative) Urine Glucose (UA) Negative (Negative) Urine Ketones Negative (Negative) Urine Blood Negative (Negative) Urine Nitrite Negative (Negative) Urine Bilirubin Negative (Negative) Urine Urobilinogen Negative (Negative) Ur Leukocyte Esterase Negative (Negative) Urine WBC (Auto) 0 (0-5) /hpf Urine RBC (Auto) 10-30 H (0-4) /hpf U Hyaline Cast (Auto) 10-30 H (0-5) /lpf U Epithel Cells (Auto) 10-20 H (0-5) /lpf Urine Bacteria (Auto) Negative (Negative) Imaging Data Radiologist's Impression: Radiology results as stated below per my review and the radiologist's interpretation: XR femur RT 2V routine, XR tibia fibula RT 2V CLINICAL HISTORY: fall eval for injury. Right leg pain. COMPARISON STUDY: None. FINDINGS: The visualized pelvic bones are intact. No dislocation within the right femur or right lower leg. There is a distracted fracture at the tip of the greater trochanter. This demonstrates up to 1 cm of distraction. This does not extend to the intertrochanteric location. Equivocal intertrochanteric hairline fracture. No fracture or dislocation within the right tibia or right fibula. IMPRESSION: 1. Distracted fracture at the tip of the greater trochanter. There is an equivocal intertrochanteric hairline fracture. Recommend dedicated right hip CT for further evaluation. 2. No fracture or dislocation within the right lower leg. Electronically signed by: Bill Davis M.D. 01/29/2019 7:[address] OF THE HEAD WITHOUT CONTRAST CLINICAL HISTORY: Fall. COMPARISON STUDY: No previous studies for comparison. CT DOSE: 773.57 mGy.cm TECHNIQUE: Helical axial images of the head were obtained without IV contrast. Automated exposure control was utilized for the study. A dose lowering technique was utilized adhering to the principles of ALARA. FINDINGS: No acute intracranial hemorrhage, midline shift or mass effect is present. The ventricular system is stable. The basilar cisterns are patent. No extra-axial collections are present. There are no findings to suggest acute dural sinus thrombosis or acute territorial infarct. No significant calvarial abnormalities are present. Visualized portions of the sinuses and mastoid air cells are clear. White matter hypodensities represent small vessel disease. IMPRESSION: 1. No acute intracranial findings. 2. No calvarial fracture. Electronically signed by: Hamlet Dias M.D. 01/29/2019 7:10 PM XR hip RT min 2V CLINICAL HISTORY: Fall. COMPARISON: None FINDINGS: Note is made of an acute displaced fracture of the greater trochanter of the right femur. Fracture is displaced 1.2 cm. A lucency projects over the intertrochanteric region which could reflect a nondisplaced intertrochanteric portion. Lesser trochanter appears intact. IMPRESSION: Acute mildly displaced fracture of the greater trochanter with possible nondisplaced intertrochanteric component. A CT of the right hip could be obtained. Electronically signed by: Hamlet Dias M.D. 01/29/2019 7:35 PM XR knee RT 3V CLINICAL HISTORY: Fall. COMPARISON: None FINDINGS: Alignment of the right knee is anatomic. No acute fracture is visualized. There is no right knee joint effusion. IMPRESSION: No acute fracture or joint effusion within the right knee. Electronically signed by: Hamlet Dias M.D. 01/29/2019 7:27 PM XR femur RT 2V routine, XR tibia fibula RT 2V CLINICAL HISTORY: fall eval for injury. Right leg pain. COMPARISON STUDY: None. FINDINGS: The visualized pelvic bones are intact. No dislocation within the right femur or right lower leg. There is a distracted fracture at the tip of the greater trochanter. This demonstrates up to 1 cm of distraction. This does not extend to the intertrochanteric location. Equivocal intertrochanteric hairline fracture. No fracture or dislocation within the right tibia or right fibula. IMPRESSION: 1. Distracted fracture at the tip of the greater trochanter. There is an equivocal intertrochanteric hairline fracture. Recommend dedicated right hip CT for further evaluation. 2. No fracture or dislocation within the right lower leg. Electronically signed by: Bill Davis M.D. 01/29/2019 7:36 PM RIGHT HAND 3 VIEWS HISTORY: Right hand pain. fall eval for fx COMPARISON: None. FINDINGS: There is no fracture or dislocation. Mild dorsal soft tissue swelling at the base of the hand. Moderate degenerative changes within the right hand. Deformity within the fifth digit is likely chronic. No radiopaque foreign bodies. The bones are osteopenic. IMPRESSION: 1. No acute fractures within the right hand. 2. Deformity within the right fifth digit is likely chronic. Clinical correlation recommended. Electronically signed by: Bill Davis M.D. 01/29/2019 7:30 PM ECG Data Attestation: I personally reviewed and interpreted this ECG as follows: Indication: other (fall) Rate (beats per minute): 72 Rhythm: sinus rhythm Findings: + PVC; no ST elevation Comparison ECG Date: from (01/23/19) Change: no significant change Blood Pressure Blood Pressure Findings: Normal blood pressure Blood Pressure Disposition: did not require urgent referral MDM Narrative I did evaluate the patient as noted above. I did obtain history from the patient's daughter due to the patient's severe dementia and memory loss. Presumably she fell yesterday and has been limping and having difficulty ambulating since yesterday. Her symptoms seem to be worse today according to th e patient's daughter. The patient herself denies any pain but obviously has pain when I bend her knee or hip. There is no shortening. She is neurovascularly intact. IV access was established. The patient was placed on a continuous surveillance monitor. I did order and personally review the patient's 12- lead EKG as described above. Twelve-lead EKG does not demonstrate any acute ischemia or dysrhythmia. I did order and personally reviewed the images of the patient's x-rays as described above. She does have an intertrochanteric right hip fracture. No other fractures are noted. I did order a urine analysis. I did order and review the patient's blood work as noted in the electronic medical record. She is anemic. I did order a CT of the head. I did review the images myself as well as the radiology report as described above. There is no evidence of intracranial hemorrhage. It is unclear if the patient hit her head. I did order a CT due to her age and dementia and history of fall. I did discuss the test results with the patient and her daughter. I did recommend hospitalization for further care and evaluation. I did discuss the case with the hospitalist and complex case manager. Impression & Plan Intertrochanteric fracture, Fall, Anemia Discharge Plan Visit Data *Final* Discharge Date/Time: 01/29/19 21:20 Chief Complaint: Fall Stated Complaint: FELL, CANT WALK ED Provider: Jose Feliz Discharge Problem: Intertrochanteric fracture, Fall, Anemia Patient Disposition: Admitted As Inpatient Discharge Instructions Interventions: ED Discharge Assessment Last Done: 01/29/19 21:20 Discharge Problem: Intertrochanteric fracture Qualifiers: Encounter type: initial encounter Fracture type: closed Fracture alignment: nondisplaced Laterality: right Qualified Code(s): S72.144A - Nondisplaced intertrochanteric fracture of right femur, initial encounter for closed fracture Fall Qualifiers: Encounter type: initial encounter Qualified Code(s): W19.XXXA - Unspecified fall, initial encounter Anemia Qualifiers: Anemia type: unspecified type Qualified Code(s): D64.9 - Anemia, unspecified The brandynibe's documentation has been prepared under my direction and personally reviewed by me in its entirety. I confirm that the note above accurately re flects all work, treatment, procedures, and medical decision making performed by me.
[2019-01-30] MEDS ORDERED: Nursing to Pharmacy Communication ONE ×2 (00:12→18:52)
[2019-01-30] MEDS ORDERED: DEXTROSE 50% 50 ML SYRINGE IV PRN (00:30)
[2019-01-30] MEDS ORDERED: GLUCOSE 10 TABS/TUBE PO PRN (00:30)
[2019-01-30] MEDS ORDERED: GLUCAGON FOR INJ 1 MG VIAL SQ PRN (00:30)
[2019-01-30] MEDS ORDERED: GLUCOSE 40% GEL 15 GM TUBE PO PRN (00:30)
[2019-01-30] MEDS ORDERED: CARBOHYDRATES FOR HYPOGLYCEMIA PO PRN (00:30)
[2019-01-30] MEDS: INSULIN ASPART 100 UNITS/ML 3 ML PEN SC SCH ×4 (06:06→20:59)
[2019-01-30 06:11] LABS: Basophils # (auto) 0.02 K/uL (0-0.2); Basophils % (auto) 0.4 %; Eosinophils # (auto) 0.07 K/uL (0-0.5); Eosinophils % (auto) 1.3 %; Hematocrit (blood only) 27.3 % (37-47); Hemoglobin 9.3 g/dL (12.0-16.0); Immature Granulocytes # (auto) 0.01 K/uL (0.00-0.02); Immature Granulocytes % (auto) 0.2 %; Lymphocytes # (auto) 1.43 K/uL (1.2-3.4); Lymphocytes % (auto) 25.9 %; Mean Corpuscular Hemoglobin 29.2 pg (25-34); Mean Corpuscular Hgb Conc 34.1 g/dL (32-36); Mean Corpuscular Volume 85.8 fL (80-100); Mean Platelet Volume 10.6 fL (7.4-10.4); Monocytes # (auto) 0.82 K/uL (0.11-0.59); Monocytes % (auto) 14.9 %; Neutrophils # (auto) 3.17 K/uL (1.4-6.5); Neutrophils % (auto) 57.3 %; Platelet Count 182 K/uL (130-400); RDW Coefficient of Variation 15.3 % (11.5-14.5); RDW Standard Deviation 48.6 fL (36.4-46.3); Red Blood Count 3.18 M/uL (4.2-5.4); White Blood Count 5.52 K/uL (4.8-10.8)
[2019-01-30 06:32] LABS: Estimated Average Glucose 111 mg/dl; Hemoglobin A1C 5.5 % (4.5-5.6)
[2019-01-30 06:51] LABS: BUN Creatinine Ratio 29.9 (10-20); Calcium 8.8 mg/dl (8.5-10.1); Creatinine Clr Calc Pharmacy 48.8 ml/min; Est GFR (African American) 87.3; Est GFR (Non-African American) 75.3; Magnesium 1.4 mg/dl (1.8-2.4); Potassium 3.7 mmol/L (3.5-5.1)
--- NOTE | 2019-01-30 07:02 | XRay Report ---
XR chest 1V portable CLINICAL HISTORY: pre op preoperative evaluation COMPARISON STUDY: 11/13/2018 FINDINGS: The bones soft tissues and hemidiaphragms are normal. The cardiomediastinal silhouette is n ormal. The lungs are clear. The pulmonary vasculature is normal. IMPRESSION: Negative chest. The above report was generated using voice recognition software. It may contain grammatical, syntax or spelling errors. Electronically signed by: Mundo Guajardo M.D. 01/30/2019 7:01 AM
--- NOTE | 2019-01-30 07:51 | Anesthesiology Consultation ---
Date of Service January 30, 2019 Assessment & Plan (1) Encounter for pre-operative examination: Chart Review Chart Review: Acceptable Risk for Surgery and Patient NOT seen in Pre Admission Testing Patient's daughter (POA) is present at bedside and will sign her anesthesia consent per nurse. Echo being completed AM of 01/30/2019. Patient NPO since midnight. Pt only has a 22G PIV as she keeps ripping out her IV's. STAT type and screen ordered. Consults Requested none History Surgery Operation Date: 01/30/19 12:10 Proposed Procedures p Right Troch Nail - Enrique Escalante DO Height/Weight Height: 5 ft 5 in Weight: 56.2 kg Allergies Allergy/AdvReac Type Severity Reaction Status Date / Time Penicillins Allergy Intermediate HIVES Verified 01/29/19 18:25 risedronate sodium AdvReac Intermediate GI SYMPTOMS Verified 01/29/19 18:25 Medications Home Medications Medication Instructions Recorded Confirmed Last Taken fenofibrate 160 mg PO QAM 11/13/18 01/29/19 01/29/19 loperamide [Imodium A-D] 2 mg PO BID PRN 11/13/18 01/29/19 Unknown metformin 1,000 mg PO QAM 11/13/18 01/29/19 01/29/19 methimazole 5 mg PO 5XWK 11/13/18 01/29/19 01/29/19 multivitamin [Daily-Pierre] 1 tab PO DAILY 11/13/18 01/29/19 01/29/19 Ensure 1 ea PO BID 12/20/18 01/29/19 01/29/19 14:00 diltiazem HCl 120 mg PO QAM 12/20/18 01/29/19 01/29/19 docusate sodium [Doc-Q-Lace] 100 mg PO DAILY PRN 12/20/18 01/29/19 Unknown methimazole 2.5 mg PO 2XWK 12/20/18 01/29/19 01/25/19 sennosides-docusate sodium 2 tab PO DAILY PRN 12/20/18 01/29/19 Unknown [Senna-S] Active Medications Generic Name Dose Route Start Last Admin Trade Name Freq PRN Reason Stop Dose Admin Sodium Chloride 1,000 mls @ 75 mls/hr 01/29/19 22:05 01/29/19 22:35 Nss 1000ml IV 02/28/19 22:04 75 mls/hr .[id number] [place] Administration Insulin Aspart 0 units 01/30/19 06:00 01/30/19 06:06 Novolog Flexpen SC 03/01/19 05:59 Not Given Q6 [place] Miscellaneous 1 ea 01/30/19 00:00 01/29/19 23:53 Order Awaiting Action N/A 03/01/19 00:00 Not Given QS [place] NPO Date Last Intake of Fluids: 01/29/19 Time Last Intake of Fluids: 23:59 Date Last Intake of Solids: 01/29/19 Time Last Intake of Solids: 22:30 Past Medical History Medical History Borderline diabetes (Chronic) Dementia (Chronic) daughters, Vielka & Toya (POA) to sign any paperwork for patient (per [facility] staff) Paroxysmal A-fib Diabetes mellitus, type 2 niddm Hyperlipidemia Hyperthyroidism Mitral valve disorder Osteoporosis Exercise / Class Metabolic Activity IV < 2 Limit ADL/Bedbound Past Family History Family History Other No pertinent family history Past Surgical History Surgical History History of ERCP stent placed on common bile duct (reason for procedure 01/2019). 01/23/2019. GETA. MAC 3, grade 1 view. 7.0ETT. No issues. History of hysterectomy Past Anesthesia History No Hx of Anesthesia Complications and No Family Hx of Anesthesia Complications History of PONV No Hx of PONV and No Hx of Motion Sickness Social History Smoking Status: Never smoker Hx Alcohol Use: No Hx Substance Use: No Physical Exam Vital Signs Last Vital Signs Temp 36.5 C 01/30/19 06:30 Pulse 70 01/30/19 06:30 Resp 16 01/30/19 06:30 BP 118/66 01/30/19 06:30 Pulse Ox 97 01/30/19 06:30 ENMT Mouth: + edentulous Thyromental Distance: < 3.5 Finger Breadths Mallampati Class: II Neck normal visual inspection Respiratory normal respiratory effort Cardiovascular Rate/Rhythm: regular rate and regular rhythm Heart Sounds: + murmur Musculoskeletal Spine: + limited cervical ROM; no pain with cervical ROM Neurologic + does not move all extremities Psychiatric Orientation: alert; + not oriented x 3 Testing Laboratory Results 01/30/19 05:08 01/30/19 05:08 PT 9.9 Seconds (9.0-12.0) 01/29/19 18:42 INR 1.0 (0.9-1.1) 01/29/19 18:42 APTT 26.0 Seconds (21.0-31.0) 01/29/19 18:42 Hemoglobin A1c 5.5 % (4.5-5.6) 01/30/19 05:08 Urine Color Yellow 01/29/19 20:40 Urine Appearance Cloudy (Clear) A 01/29/19 20:40 Urine pH 5.0 (4.5-7.5) 01/29/19 20:40 Ur Specific [place] 1.017 (1.000-1.030) 01/29/19 20:40 Urine Protein Negative (Negative) 01/29/19 20:40 Urine Glucose (UA) Negative (Negative) 01/29/19 20:40 Urine Ketones Negative (Negative) 01/29/19 20:40 Urine Nitrite Negative (Negative) 01/29/19 20:40 Ur Leukocyte Esterase Negative (Negative) 01/29/19 20:40 Urine WBC (Auto) 0 /hpf (0-5) 01/29/19 20:40 Urine RBC (Auto) 10-30 /hpf (0-4) H 01/29/19 20:40 U Hyaline Cast (Auto) 10-30 /lpf (0-5) H 01/29/19 20:40 U Epithel Cells (Auto) 10-20 /lpf (0-5) H 01/29/19 20:40 Urine Bacteria (Auto) Negative (Negative) 01/29/19 20:40 01/30/19 05:52 POC Glucose 109 H Electrocardiogram Date: 01/29/19 Findings: + NSR @ (72) Sinus rhythm with sinus arrhythmia with occasional PVC's. LAD ECG 01/23/2019. Sinus rhythm with frequent, and consecutive PVC's. LAD Incompete RBBB HR 64 Chest X-Ray Date: 01/30/19 XR chest 1V portable CLINICAL HISTORY: pre op preoperative evaluation COMPARISON STUDY: 11/13/2018 FINDINGS: The bones soft tissues and hemidiaphragms are normal. The cardiomediastinal silhouette is normal. The lungs are clear. The pulmonary vasculature is normal. IMPRESSION: Negative chest. Echocardiogram being completed 01/30/2019.
[2019-01-30] MEDS: dilTIAZem ER 120 MG CAPCR PO SCH (08:10)
[2019-01-30] MEDS: MULTIVITAMIN TAB PO SCH (08:11)
[2019-01-30] MEDS: methIMAzole 5 MG TABLET PO SCH (08:11)
--- NOTE | 2019-01-30 08:35 | Orthopedic Consultation ---
Date of Consultation January 30, 2019 Assessment & Plan (1) Intertrochanteric fracture: X-rays have been reviewed with Dr. Escalante. With the extension of the fracture further down into the intertrochanteric region, patient will require a TFN of the right hip. Plan will be to take the patient to the OR late this morning if she has been medically cleared. Echocardiogram has been done this morning and reading is pending. History of Present Illness Reason for Consultation: Right hip fracture Attending Physician: Jairo Schultz MD History of Present Illness Patient is an 88-year-old white female who resides at a personal care facility here in [place]. She was seen in the emergency room last night due to a mbulatory dysfunction. Patient has a history of dementia and currently no family is present. She is pleasant and answers some questions appropriately. She is a poor historian and further history will be taken from the chart. Patient was noted to be limping at her place of residence the day prior to admission. She had no recollection of falling or injuring the hip in any way. Yesterday she had a worsening ambulatory dysfunction and was brought to the emergency room for x-rays. Initial plain films taken of the hip and femur show a distracted fracture of the tip of the greater trochanter with a question of an intertrochanteric hip fracture. CT scan was obtained and read as fracture of the tip the greater trochanter with extension down into the posterior aspect of the femoral neck. She was thusly admitted for further care. We have been asked to see her for her hip fracture. Allergies Allergy/AdvReac Type Severity Reaction Status Date / Time Penicillins Allergy Intermediate HIVES Verified 01/29/19 18:25 risedronate sodium AdvReac Intermediate GI SYMPTOMS Verified 01/29/19 18:25 Home Medications Home Medications Medication Instructions Recorded Confirmed Type fenofibrate 160 mg PO QAM 11/13/18 01/29/19 History loperamide [Imodium A-D] 2 mg PO BID PRN 11/13/18 01/29/19 History metformin 1,000 mg PO QAM 11/13/18 01/29/19 History methimazole 5 mg PO 5XWK 11/13/18 01/29/19 History multivitamin [Daily-Pierre] 1 tab PO DAILY 11/13/18 01/29/19 History Ensure 1 ea PO BID 12/20/18 01/29/19 History diltiazem HCl 120 mg PO QAM 12/20/18 01/29/19 History docusate sodium [Doc-Q-Lace] 100 mg PO DAILY PRN 12/20/18 01/29/19 History methimazole 2.5 mg PO 2XWK 12/20/18 01/29/19 History sennosides-docusate sodium 2 tab PO DAILY PRN 12/20/18 01/29/19 History [Senna-S] Patient History Medical History Borderline diabetes (Chronic) Dementia (Chronic) daughters, Vielka & Toya (POA) to sign any paperwork for patient (per [facility] staff) Paroxysmal A-fib Diabetes mellitus, type 2 niddm Hyperlipidemia Hyperthyroidism Mitral valve disorder Osteoporosis Surgical History History of ERCP stent placed on common bile duct (reason for procedure 01/2019). 01/23/2019. GETA. MAC 3, grade 1 view. 7.0ETT. No issues. History of hysterectomy Family History Other No pertinent family history Social History Preferred Language: Sami Communication Ability: Effective Personal Injury Law Specialist Required: No Beliefs That Will Affect Care: Anglican Current Living Situation: Personal Care Facility Current Living Situation Comment: [facility] Other Information That Helps Us Care for You: Yes (Pulls at wires/IV sites) Feels Safe at Home: Yes Safety Concerns: Feels Safe At This Time Smoking Status: Never smoker Hx Alcohol Use: No Hx Substance Use: No Review of Systems Review of Systems: Unobtainable due to dementia. Physical Exam Physical Exam: Patient is currently lying in bed sleeping. She is easily awoken and is pleasant. Focusing the exam on the right lower extremity, leg lengths appear equal and right leg is externally rotated. She has mild pain with internal and external rotation of the hip. I am able to flex the hip to approximately 60 degrees before she begins having pain in the hip and groin. The knee is flexed to 90 degrees without discomfort. Extension of the hip causes mild pain. She does have some mild pain with abduction; adduction. No pain or swelling noted of the right knee or ankle at this time. Left lower extremity appears to be unaffected and she has good range of motion of the left hip knee and ankle without discomfort. She denies any pain with the shoulders elbows and wrist at this time. No gross motor or sensory loss seen at this time. Pulses appear equal bilaterally. Results & Data Vital Signs (Past 12 Hours) Vital Signs Temp Pulse Pulse Resp BP Pulse Ox 01/30/19 06:30 36.5 C 70 16 118/66 97 01/29/19 23:45 72 16 103/59 L 97 01/29/19 22:06 36.8 C 66 16 133/77 98 01/29/19 21:13 78 18 118/58 L 96 Diagnostic Findings Patient: CLARE SAAVEDRA Date: 01/29/19 MR#: [id number]: [address] Acct ID:[id number]: Date: 1930[facility] Zip: [place] [address] Age: 88Location: ED Sex: F Room/Bed: Att Phy:Diagnosis: FELL, CANT WALK Nikki Phy: [facility] Date: 01/29/19 Fam Phy:Interpreting Phy: Bill Davis MD Admit Phy: Ordering Phy: Jose Feliz MD cc: ~ XR femur RT 2V routine, XR tibia fibula RT 2V CLINICAL HISTORY: fall eval for injury. Right leg pain. COMPARISON STUDY: None. FINDINGS: The visualized pelvic bones are intact. No dislocation within the right femur or right lower leg. There is a distracted fracture at the tip of the greater trochanter. This demonstrates up to 1 cm of distraction. This does not extend to the intertrochanteric location. Equivocal intertrochanteric hairline fracture. No fracture or dislocation within the right tibia or right fibula. IMPRESSION: 1. Distracted fracture at the tip of the greater trochanter. There is an equivocal intertrochanteric hairline fracture. Recommend dedicated right hip CT for further evaluation. 2. No fracture or dislocation within the right lower leg. Electronically signed by: Bill Davis M.D. 01/29/2019 7:36 PM Patient: CLARE SAAVEDRA Date: 01/29/19 MR#: [id number]: [address] Acct ID:[id number]: Date: 1930ity Zip: [place] [address] Age: 88Location: 3E Sex: F Room/Bed: [facility] Att Phy: Paz Shelton MDDiagnosis: RIGHT HIP FRACTURE [facility]: [facility] Fam Phy:Interpreting Phy: Bill Davis MD Admit Phy: Zhang Martin MD Ordering Phy: Zhang Martin MD cc: ~ RIGHT HIP CT CT DOSE: 325.84 mGy.cm HISTORY: right hip fx TECHNIQUE: Multiaxial CT images of the right hip were performed and reformatted in the sagittal and coronal plane without the use of contrast. A dose lowering technique was utilized adhering to the principles of ALARA. COMPARISON: Right hip 01/29/2019. FINDINGS: The bladder is decompressed by Felix catheter. There is a large stool ball within the rectum which measures 11 cm in diameter. No dislocation within the right hip. The visualized pelvic bones are intact. Soft tissue contusion within the lateral right hip. Comminuted fracture at the greater trochanter which demonstrates up to 11 mm of posterior displacement. The fracture line extends posteriorly at the base of the greater trochanter and along the posterior cortex of the base of the femoral neck. The fracture does not clearly extend to the lesser trochanter. IMPRESSION: Comminuted fracture within the greater trochanter which extends to the base of the greater trochanter and along the posterior cortex of the base of the right femoral neck. Orthopedic consultation is suggested for possible internal fixation given the involvement of the femoral neck base. Electronically signed by: Bill Davis M.D. 01/29/2019 10:03 PM (1) Intertrochanteric fracture Encounter type: initial encounter Fracture alignment: nondisplaced Fracture type: closed Laterality: right Qualified Code(s): S72.144A - Nondisplaced intertrochanteric fracture of right femur, initial encounter for closed fracture
[2019-01-30] MEDS ORDERED: NON-FORMULARY MEDICATION (Fenofibrate 160 MG) PO SCH (09:00)
[2019-01-30] MEDS ORDERED: BUPIVACAINE 0.5 % 5 MG/1 ML MPF 30ML VIAL ONE (11:40)
--- NOTE | 2019-01-30 11:40 | History & Physical Bridge Note ---
Date of Service January 30, 2019 History & Physical Bridge Note I have examined the patient, reviewed the History & Physical and in the interval since the performance of the History & Physical I have noted the following changes of clinical significance: no changes noted
[2019-01-30] MEDS ORDERED: ATROPINE SULFATE 0.1 MG/ML 10ML SYR IV PRN (12:04)
[2019-01-30] MEDS ORDERED: ePHEDrine sulfate 50 MG/ML AMP IV PRN (12:04)
[2019-01-30] MEDS ORDERED: BUPIVACAINE 0.5 % 5 MG/1 ML PF 10ML VIAL ONE (12:13)
[2019-01-30] MEDS ORDERED: BACITRACIN INJ 50,000 UNIT VIAL ONE (12:32)
[2019-01-30] MEDS ORDERED: CEFAZOLIN 250 MG/ML 1 GM VIAL ONE (12:40)
[2019-01-30] MEDS ORDERED: PROPOFOL IV EMULSION 10 MG/ML 20 ML VIAL IV ONE (12:55)
--- NOTE | 2019-01-30 13:46 | Fluoroscopy Report ---
FL hip RT 2-3V CLINICAL HISTORY: ORIF RIGHT TROCH NAIL COMPARISON STUDY: Right hip radiographs and CT of the right hip January 29, 2019. FLUOROSCOPY TIME: 1 minute and 46 seconds. FLUOROSCOPIC IMAGES: 4 FINDINGS: These images demonstrate placement of a trochanteric nail. Hardware fixates the proximal ri ght femoral fracture. Fracture alignment has improved and appears near anatomic. There is a distal sc rew. Hardware is intact. There are no unexpected radiopaque foreign bodies. IMPRESSION: Expected findings following internal fixation of the right femoral fracture. Electronically signed by: Hamlet Dias M.D. 01/30/2019 1:45 PM
[2019-01-30] MEDS ORDERED: PHENYLEPHRINE 100MCG/ML 5ML SYR ONE (13:54)
[2019-01-30] MEDS ORDERED: ePHEDrine sulfate 50 MG/ML SYR ONE (13:54)
--- NOTE | 2019-01-30 13:58 | Post Operative Brief Note ---
Immediate Post Op Note v1 Date of Surgery January 30, 2019 Pre & Post Diagnosis Operation Date: 01/30/19 12:10 Pre-Op Diagnosis: RIGHT INTERTROCHANTERIC HIP FRACTURE Post-Op Diagnosis: RIGHT INTERTROCHANTERIC HIP FRACTURE Procedure Operation Date: 01/30/19 12:10 Actual Procedures p Right Hip Open Reduction Internal Fixation with Synthes Intertrochanteric Nail(Right) - Enrique Escalante DO Surgeon Enrique Escalante DO Freelance Digital Project Manager Maicol Murrieta PA-C Estimated Blood Loss 15 Findings Consistent with Post-Op Diagnosis Specimens None Anesthesia Type Spinal MAC Complications none Disposition Accompanied Patient To Recovery: Yes Disposition: Recovery Room
[2019-01-30] MEDS ORDERED: fentaNYL citrate 100 MCG/2 ML VIAL ONE (14:02)
--- NOTE | 2019-01-30 14:31 | Anesthesiology Progress Note ---
Date of Service January 30, 2019 Anesthesia Post Procedure Vital Signs Vital Signs: Temp Pulse Pulse Pulse Resp BP BP 01/30/19 14:00 36.5 C 67 16 108/43 L 01/30/19 10:55 36.5 C 70 14 122/51 L 01/30/19 06:30 36.5 C 70 16 118/66 01/29/19 23:45 72 16 103/59 L 01/29/19 22:06 36.8 C 66 16 133/77 01/29/19 21:13 78 18 118/58 L 01/29/19 19:50 85 18 111/71 01/29/19 17:43 37.1 C 90 20 112/58 L Pulse Ox 01/30/19 14:00 97 01/30/19 10:55 98 01/30/19 06:30 97 01/29/19 23:45 97 01/29/19 22:06 98 01/29/19 21:13 96 01/29/19 19:50 94 01/29/19 17:43 97 Pain Intensity Right Hip: Pain Intensity: 0 Transfer of Care Handoff Completed per policy Notes Mental Status: alert / awake / arousable and participated in evaluation Nausea / Vomiting: adequately controlled Pain: adequately controlled Airway Patency, RR, SpO2: stable & adequate BP & HR: stable & adequate Hydration State: stable & adequate Neuraxial Anesthesia: was administered and sensory block is resolving (Appears to be - pt difficult to asses do to dementia) Anesthetic Complications: no major complications apparent
--- NOTE | 2019-01-30 14:32 | XRay Report ---
XR hip RT min 2V CLINICAL HISTORY: Post-Operative implant position COMPARISON STUDY: Right femur 01/29/2019. FINDINGS: Status post internal fixation of a right femoral neck/greater trochanter fracture with a pr oximal intramedullary ellen and interlocking femoral neck pin. The hardware appears intact. No dislocat ion. The alignment is near-anatomic. Soft tissue gas and skin diana within the lateral hip consiste nt with the postoperative change. IMPRESSION: Status post internal fixation of a proximal right femoral fracture. The hardware appears intact. Electronically signed by: Bill Davis M.D. 01/30/2019 2:31 PM
--- NOTE | 2019-01-30 15:03 | Operative Report ---
DATE OF OPERATION: 01/30/2019 PREOPERATIVE DIAGNOSES: Right hip intertrochanteric fracture. POSTOPERATIVE DIAGNOSIS: Right hip intertrochanteric fracture. PROCEDURE: Right hip open reduction internal fixation intertrochanteric fracture with Synthes trochanteric nail size 11 mm x 235 mm with an 11 mm x 95 mm titanium helical blade and a 5 mm x 42 mm locking screw. SURGEON: Enrique Escalante DO BUSINESS ANALYSIS PROFESSIONAL: Maicol Murrieta PA-C who was present for patient positioning, sterile prep and drape, management of retractors and instruments. He was present through the critical portions of the case including wound closure, application of sterile dressing and transport of the patient to recovery. ANESTHESIA: Spinal monitored anesthesia care. SPECIMENS: None. DRAINS: None. COMPLICATIONS: None. BLOOD LOSS: 15 mL. PERTINENT HISTORY: This is an 88-year-old resident of [facility] who is well known to our service. The patient apparently was walking in her normal state of health independently and then over the last day or so, family and staff surgeon noted that she was limping. Suspicion was that with her dementia, the patient sustained an unwitnessed fall. The patient then had serious difficulty ambulating yesterday and she then presented to [facility]. Radiographs and CT scan demonstrate an intertrochanteric hip fracture on the right. The patient was admitted to the hospitalist service and then prepped and cleared for surgery as indicated after orthopedic consultation. All potential risks, benefits, complications, alternatives, rehab, potential for incomplete relief of symptoms, the need for further surgery, DVT, PE, , persistent pain, swelling, scarring, weakness, neurovascular injury, wound complications, hardware failure, nonunion, malunion and bone fracture were discussed with the patient and family. They all decided to proceed with procedure as indicated. Case was discussed with the family and the power of surgeon partner. PROCEDURE: The patient was transferred to the operative suite. The proper site was identified. The consent was reviewed, the patient was then administered sedation and spinal anesthetic. Once appropriate, the patient then transferred to the fracture table where the lower extremity was placed in fracture table traction and the nonoperative leg was placed in the well leg osborn. All bony prominences were properly padded and protected. The padded post was placed in the peroneal and the patient was positioned appropriately. Next the left leg was placed on traction and reduction of the fracture was performed under fluoroscopic control. Next the operative hip was then sterilely prepped and draped in the usual fashion. Next, a 10-blade scalpel incision was used to make an incision proximal to the greater trochanter. The incision was deep in the subcutaneous tissue and fascia and the tip of the greater trochanter was then palpated followed by placement of a guide pin under fluoroscopic control driven into the greater trochanter down to the level of the less trochanter. This was confirmed in AP and lateral projections followed by placement of the proximal reamer over the cannulated guide pin. Next, the reamer was then removed using the soft tissue protector, which was also removed. Next, the ball tip guide ellen was placed into the proximal femur under fluoroscopic control confirmed with AP and lateral fluoroscope projections. Next, the trochanteric nail was then passed over the guide ellen into the femur, the guide ellen was removed and then under fluoroscopic control appropriate level of the femoral nail was then placed in AP projections. Next, the targeting device was then fixed to the driving handle and 10-blade scalpel incision was made in the lateral aspect of the thigh. Next, the tissue protector and cannulated guide system was then passed into the soft tissue until it was securely fixed against a lateral aspect of the femoral cortex. This was also confirmed under C-arm. Next, the guide pin for the spiral blade was driven into the lateral aspect of the femur confirming this with AP lateral projections until the guide pin was in the center of the femoral neck and head approximately 5 mm from the subcortical bone of the femur. Next, the spiral blade was then measured and then the lateral cortex was then drilled with the cortex reamer followed by use of the triple reamer with the depth stop set at appropriate depth. In this case, 11 mm x 95 mm titanium helical blade was then inserted over the cannulated guide ellen under fluoroscopic control. This was seated appropriately then traction was reduced from the limb and the fracture was then gently compressed and then locked proximally with the flexible screwdriver. Next, the spiral blade was then disengaged from its insertion handle, insertion handle was then removed and the guide pin was removed from the femoral neck and head. Next, the lateral targeting arm was used to insert the distal locking screw. First, a 10-blade scalpel incision was made in the lateral aspect of the thigh, captured drill sleeves were then tamped gently to the lateral aspect of the femoral cortex then the locking screw hole was then drilled, measured and then an appropriate length screw was placed to lock the distal aspect of the nail. Next, targeting sleeves were then removed. The insertion arm was then removed from the nail and final x-rays were obtained in AP and lateral projections. All incisions were then copiously irrigated with sterile normal saline. The proximal gluteus fascia was then closed using interrupted #1 Vicryl, the dermis was closed using buried interrupted 2-0 Vicryl sutures in all three incisions and the skin was then closed using skin diana. A sterile compressive dressing consisting of Xeroform gauze, sterile 4 x 4's and Tegaderm was applied. The patient was then awakened and taken to recovery in stable condition. I attest to the content of the Intraoperative Record and any orders documented therein. Any exception s are noted below.
[2019-01-30] MEDS ORDERED: NALOXONE HCL 0.4 MG/1 ML VIAL/CARP IV PRN (15:43)
--- NOTE | 2019-01-30 16:14 | Hospitalist Progress Note ---
Date of Service January 30, 2019 Assessment & Plan (1) Intertrochanteric fracture: -s/p Right hip open reduction internal fixation intertrochanteric fracture with repair (Synthes trochanteric nail size 11 mm x 235 mm with an 11 mm x 95 mm titanium helical blade and a 5 mm x 42 mm locking screw) on 01/30/19 -pain medication: acetaminophen every 8 hours on a scheduled basis due to patient's history of dementia that she may not know how to ask for pain control, oxycodone prn for moderate pain, dilaudid prn for severe pain -bowel regimen -monitor urine output with stuart for now chronic Anemia -anemia prior to surgery, monitor hemoglobin Hypomagnesemia -serum magnesium 1.4 on admission, give IV magnesium and check levels Dementia -has bed alarm if patient tries to leave the bed -patient room is near nursing station Absence of teeth -recently upper teeth were pulled as outpatient so patient can be fitted for dentures -patient has had problems with using dentures in the past as per patient's daughter due to recent gum inflammation -soft, bite sized diet Echocardiogram does not show any valvular prolapse heart rate and rhythm are regular Type 2 diabetes mellitus without senior care use of insulin -hold home dose metformin -insulin sliding scale -check Hba1c level -continue fenofibrate History of hyperthyroidism -check TSH -Continue methimazole Code status: DO NOT INTUBATE but allows for CHEST COMPRESSION AND DEFIBRILLATION Daughter Vielka [phone] Daughter Toya [phone] Subjective Patient seen and examined at bedside s/p Right hip open reduction internal fixation intertrochanteric fracture with repair (Synthes trochanteric nail size 11 mm x 235 mm with an 11 mm x 95 mm titanium helical blade and a 5 mm x 42 mm locking screw). Patient's daughter Ashlie at bedside. She affirms patient's history of dementia. Patient cooperative and follows direction of the medical doctor for physical exam. Patient denies acute pain and voices no other complaints Patient covered with blanket and Alisha Hugger, stuart in place, ice over the right thigh with dressing over incision sites Physical Exam Constitutional: comfortable Patient covered with blanket and Alisha Hugger, stuart in place, ice over the right thigh with dressing over incision sites Eyes: EOM intact bilaterally ENMT: upper teeth absent, dentures at bedside Neck: normal visual inspection Respiratory: normal respiratory effort, lungs clear to auscultation Cardiovascular: Rate/Rhythm: regular rate and regular rhythm Gastrointestinal (Abdomen): Inspection/Auscultation: normal bowel sounds Percussion/Palpation: abdomen soft Musculoskeletal: Head/Neck/Chest: normocephalic and head atraumatic ice over the right thigh with dressing over incision sites Neurologic: PERRL, EOMI, accommodation nl, no face palsy, no dysarthria able to move the toes bilaterally Psychiatric: Orientation: alert and cooperative Results & Data Vital Signs (Past 12 Hours) Vital Signs Temp Pulse Pulse Pulse Resp BP BP 01/30/19 15:45 36.3 C L 64 12 104/54 L 01/30/19 15:01 67 14 01/30/19 15:00 66 14 115/53 L 01/30/19 14:56 68 14 01/30/19 14:55 71 14 01/30/19 14:54 64 14 112/65 01/30/19 14:51 66 14 01/30/19 14:50 66 13 95/47 L 01/30/19 14:46 65 19 01/30/19 14:45 69 12 112/46 L 01/30/19 14:41 62 12 01/30/19 14:40 70 14 92/51 L 01/30/19 14:36 70 17 01/30/19 14:35 67 14 91/51 L 01/30/19 14:31 64 13 103/51 L 01/30/19 14:30 61 12 01/30/19 14:26 66 16 01/30/19 14:25 67 14 109/60 01/30/19 14:21 64 12 97/42 L 01/30/19 14:20 69 12 01/30/19 14:16 70 15 01/30/19 14:15 64 14 85/53 L 01/30/19 14:11 62 13 01/30/19 14:10 64 12 83/54 L 01/30/19 14:06 69 12 01/30/19 14:05 66 15 102/45 L 01/30/19 14:01 66 12 01/30/19 14:00 36.5 C 69 67 14 108/43 L 108/43 L 01/30/19 10:55 36.5 C 70 14 122/51 L 01/30/19 06:30 36.5 C 70 16 118/66 Pulse Ox 01/30/19 15:45 100 01/30/19 15:01 100 01/30/19 15:00 100 01/30/19 14:56 100 01/30/19 14:55 100 01/30/19 14:54 100 01/30/19 14:51 100 01/30/19 14:50 100 01/30/19 14:46 97 01/30/19 14:45 98 01/30/19 14:41 100 01/30/19 14:40 100 01/30/19 14:36 100 01/30/19 14:35 100 01/30/19 14:31 100 01/30/19 14:30 100 01/30/19 14:26 98 01/30/19 14:25 99 01/30/19 14:21 100 01/30/19 14:20 96 01/30/19 14:16 100 01/30/19 14:15 98 01/30/19 14:11 100 01/30/19 14:10 100 01/30/19 14:06 96 01/30/19 14:05 99 01/30/19 14:01 97 01/30/19 14:00 92 01/30/19 10:55 98 01/30/19 06:30 97 (1) Intertrochanteric fracture Encounter type: initial encounter Fracture alignment: nondisplaced Fracture type: closed Laterality: right Qualified Code(s): S72.144A - Nondisplaced intertrochanteric fracture of right femur, initial encounter for closed fracture
[2019-01-30] MEDS ORDERED: HYDROmorphone INJ 0.5 MG/0.5 ML SYR IV PRN (16:42)
[2019-01-30 17:21] LABS: Basophils # (auto) 0.02 K/uL (0-0.2); Basophils % (auto) 0.2 %; Eosinophils # (auto) 0.08 K/uL (0-0.5); Eosinophils % (auto) 0.9 %; Hematocrit (blood only) 30.8 % (37-47); Hemoglobin 10.2 g/dL (12.0-16.0); Immature Granulocytes # (auto) 0.02 K/uL (0.00-0.02); Immature Granulocytes % (auto) 0.2 %; Lymphocytes # (auto) 1.65 K/uL (1.2-3.4); Lymphocytes % (auto) 18.2 %; Mean Corpuscular Hemoglobin 28.7 pg (25-34); Mean Corpuscular Volume 86.8 fL (80-100); Mean Platelet Volume 10.8 fL (7.4-10.4); Monocytes # (auto) 0.77 K/uL (0.11-0.59); Monocytes % (auto) 8.5 %; Neutrophils # (auto) 6.55 K/uL (1.4-6.5); Platelet Count 187 K/uL (130-400); RDW Coefficient of Variation 15.1 % (11.5-14.5); RDW Standard Deviation 48.4 fL (36.4-46.3); Red Blood Count 3.55 M/uL (4.2-5.4); White Blood Count 9.09 K/uL (4.8-10.8)
[2019-01-30 17:36] LABS: Mean Corpuscular Hgb Conc 33.1 g/dL (32-36)
[2019-01-30] MEDS: MAGNESIUM SULFATE / D5W 1 GM/100 ML BAG IV SCH ×2 (17:36→18:37)
[2019-01-30] MEDS: SODIUM CHLORIDE 0.9% 1000ML 1,000 ML IV SCH ×2 (17:41→20:10)
[2019-01-30 17:43] LABS: BUN Creatinine Ratio 23.9 (10-20); Calcium 8.7 mg/dl (8.5-10.1); Creatinine Clr Calc Pharmacy 52.5 ml/min; Est GFR (African American) 91.6; Magnesium 1.4 mg/dl (1.8-2.4); Potassium 3.6 mmol/L (3.5-5.1)
[2019-01-30 17:54] LABS: Ferritin 413.1 ng/ml (8-388); Phosphorus 3.1 mg/dl (2.5-4.9); Thyroid Stimulating Hormone 1.37 uIu/ml (0.300-4.500)
[2019-01-30 17:58] LABS: Folate (Folic Acid) > 24.00 ng/ml (>5.38); Vitamin B12 428 pg/ml (211-911)
[2019-01-30] MEDS: ACETAMINOPHEN 325 MG TAB PO SCH (18:43)
[2019-01-30] MEDS: MAGNESIUM OXIDE 400 MG TAB PO SCH (19:18)
[2019-01-30] MEDS: ASPIRIN 81 MG ECTAB PO SCH (19:18)
[2019-01-30] MEDS: CEFAZOLIN 1000MG 1,000 MG/7.5 ML SYR IV SCH (20:11)
[2019-01-30] MEDS: OXYCODONE HCL IR 5 MG TAB (IMMEDIATE RELEASE) PO PRN (21:38)
[2019-01-31] MEDS: ACETAMINOPHEN 325 MG TAB PO SCH ×3 (00:11→17:48)
[2019-01-31] MEDS: CEFAZOLIN 1000MG 1,000 MG/7.5 ML SYR IV SCH (03:55)
[2019-01-31 05:57] LABS: Basophils # (auto) 0.02 K/uL (0-0.2); Basophils % (auto) 0.3 %; Eosinophils # (auto) 0.03 K/uL (0-0.5); Eosinophils % (auto) 0.5 %; Hematocrit (blood only) 24.5 % (37-47); Hemoglobin 8.3 g/dL (12.0-16.0); Immature Granulocytes # (auto) 0.01 K/uL (0.00-0.02); Immature Granulocytes % (auto) 0.2 %; Lymphocytes # (auto) 0.89 K/uL (1.2-3.4); Lymphocytes % (auto) 13.8 %; Mean Corpuscular Hemoglobin 29.6 pg (25-34); Mean Corpuscular Hgb Conc 33.9 g/dL (32-36); Mean Corpuscular Volume 87.5 fL (80-100); Mean Platelet Volume 10.2 fL (7.4-10.4); Monocytes # (auto) 0.71 K/uL (0.11-0.59); Neutrophils # (auto) 4.81 K/uL (1.4-6.5); Neutrophils % (auto) 74.2 %; Platelet Count 154 K/uL (130-400); RDW Coefficient of Variation 15.3 % (11.5-14.5); White Blood Count 6.47 K/uL (4.8-10.8)
[2019-01-31 06:32] LABS: BUN Creatinine Ratio 27.9 (10-20); Calcium 8.3 mg/dl (8.5-10.1); Creatinine Clr Calc Pharmacy 52.5 ml/min; Est GFR (African American) 91.6; Magnesium 1.8 mg/dl (1.8-2.4); Potassium 3.8 mmol/L (3.5-5.1)
[2019-01-31] MEDS ORDERED: MAGNESIUM SULFATE / D5W 1 GM/100 ML BAG IV ONE (07:11)
[2019-01-31 07:18] LABS: Estimated Average Glucose 114 mg/dl; Hemoglobin A1C 5.6 % (4.5-5.6)
--- NOTE | 2019-01-31 07:22 | Orthopedic Progress Note ---
Date of Service January 31, 2019 Assessment & Plan (1) Intertrochanteric fracture: POD#1 Right TFN -Pain management -DVT prophylaxis-SCDs, aspirin 81mg BID -PT/OT-WBAT right LE -D/C planning. Subjective Patient is POD#1 right TFN. Does have a history of dementia. Answers some questions appropriately. Not having much pain. No other complaints. Review of Systems Review of Systems: All systems reviewed & are unremarkable except as noted in HPI & below Physical Exam Physical Exam: Patient is resting in bed comfortably. No acute distress, does not appear to be in much pain. No calf tenderness, calves are soft. Toes mobile. No discomfort with gentle hip rotation. Dressings are c/d/i. Constitutional: + acute distress Results & Data Vital Signs (Past 12 Hours) Vital Signs Temp Pulse Resp BP Pulse Ox 01/31/19 06:50 36.7 C 83 18 96/58 L 95 01/31/19 03:55 37.2 C 86 16 98/54 L 96 01/31/19 00:28 36.4 C L 80 16 95/58 L 98 01/30/19 20:07 36.5 C 84 16 99/55 L 95 (1) Intertrochanteric fracture Encounter type: initial encounter Fracture alignment: nondisplaced Fracture type: closed Laterality: right Qualified Code(s): S72.144A - Nondisplaced intertrochanteric fracture of right femur, initial encounter for closed fracture
[2019-01-31] MEDS: dilTIAZem ER 120 MG CAPCR PO SCH (08:21)
[2019-01-31] MEDS: MAGNESIUM OXIDE 400 MG TAB PO SCH (08:21)
[2019-01-31] MEDS: MULTIVITAMIN TAB PO SCH (08:21)
[2019-01-31] MEDS: ASPIRIN 81 MG ECTAB PO SCH ×2 (08:21→20:13)
[2019-01-31] MEDS: INSULIN ASPART 100 UNITS/ML 3 ML PEN SC SCH ×4 (08:25→21:24)
[2019-01-31] MEDS: methIMAzole 5 MG TABLET PO SCH (08:48)
--- NOTE | 2019-01-31 11:40 | Hospitalist Progress Note ---
Date of Service January 31, 2019 Assessment & Plan (1) Intertrochanteric fracture: -s/p Right hip open reduction internal fixation intertrochanteric fracture with repair (Synthes trochanteric nail size 11 mm x 235 mm with an 11 mm x 95 mm titanium helical blade and a 5 mm x 42 mm locking screw) on 01/30/19 -pain medication: acetaminophen every 8 hours on a scheduled basis due to patient's history of dementia that she may not know how to ask for pain control, oxycodone prn for moderate pain, dilaudid prn for severe pain -bowel regimen -stuart to be removed on 01/31/19 -PT/OT chronic Anemia acute blood loss anemia -anemia prior to surgery, -mildly low iron -postop Hgb 10.2 to 8.3 -no need to transfuse PRBC at this time -give venofer x 1 on 01/31/19, start ferritin daily Hypomagnesemia -serum magnesium 1.4 on admission, -after magnesium supplementation, serum magnesium 1.8, give IV magnesium -continue oral magnesium supplements Severe Dementia, without behavioral disturbance -has bed alarm if patient tries to leave the bed -patient room is near nursing station Absence of teeth -recently upper teeth were pulled as outpatient so patient can be fitted for dentures -patient has had problems with using dentures in the past as per patient's daughter due to recent gum inflammation -soft, bite sized diet Echocardiogram does not show any valvular prolapse heart rate and rhythm are regular Type 2 diabetes mellitus without [facility] use of insulin -hold home dose metformin -insulin sliding scale -check Hba1c level -continue fenofibrate History of hyperthyroidism -check TSH -Continue methimazole Code status: DO NOT INTUBATE but allows for CHEST COMPRESSION AND DEFIBRILLATION DVT ppx: aspirin BID as per orthopedics for DVT prophylaxis; apply SCD to left non operated leg Daughter Vielka [phone] Daughter Toya [phone] Son [phone] Subjective Patient does not recall having surgery yesterday. She is re-oriented that she had surgery yesterday. Patient cooperative on exam. denies acute pain. does not give other history and says that everything is fine. Patient's son at bedside and we spoke of her hospital course Physical Exam Constitutional: comfortable Eyes: EOM intact bilaterally ENMT: absence of upper teeth Neck: normal visual inspection Respiratory: normal respiratory effort, lungs clear to auscultation Cardiovascular: Rate/Rhythm: regular rate and regular rhythm Gastrointestinal (Abdomen): Inspection/Auscultation: normal bowel sounds Percussion/Palpation: abdomen soft Musculoskeletal: Head/Neck/Chest: normocephalic and head atraumatic right thigh with ice, able to move the toes bilaterally Neurologic: PERRL, EOMI, accommodation nl, no face palsy, no dysarthria Psychiatric: Orientation: alert and cooperative Results & Data Vital Signs (Past 12 Hours) Vital Signs Temp Pulse Resp BP Pulse Ox 01/31/19 11:01 37.0 C 82 18 101/60 94 01/31/19 06:50 36.7 C 83 18 96/58 L 95 01/31/19 03:55 37.2 C 86 16 98/54 L 96 01/31/19 00:28 36.4 C L 80 16 95/58 L 98 (1) Intertrochanteric fracture Encounter type: initial encounter Fracture alignment: nondisplaced Fracture type: closed Laterality: right Qualified Code(s): S72.144A - Nondisplaced intertrochanteric fracture of right femur, initial encounter for closed fracture
[2019-01-31] MEDS: FERROUS SULFATE 325 MG TAB PO SCH (12:24)
[2019-01-31] MEDS ORDERED: IRON SUCROSE 200 MG in 0.9 % SODIUM CHLORIDE 100 ML IV ONE (12:30)
[2019-02-01] MEDS: ACETAMINOPHEN 325 MG TAB PO SCH ×4 (00:31→23:58)
[2019-02-01 07:46] LABS: Basophils # (auto) 0.03 K/uL (0-0.2); Basophils % (auto) 0.4 %; Eosinophils # (auto) 0.03 K/uL (0-0.5); Eosinophils % (auto) 0.4 %; Hemoglobin 8.4 g/dL (12.0-16.0); Immature Granulocytes # (auto) 0.01 K/uL (0.00-0.02); Immature Granulocytes % (auto) 0.1 %; Lymphocytes # (auto) 0.79 K/uL (1.2-3.4); Lymphocytes % (auto) 11.8 %; Mean Corpuscular Hemoglobin 29.1 pg (25-34); Mean Corpuscular Volume 86.5 fL (80-100); Mean Platelet Volume 9.8 fL (7.4-10.4); Monocytes # (auto) 0.87 K/uL (0.11-0.59); Neutrophils # (auto) 4.95 K/uL (1.4-6.5); Neutrophils % (auto) 74.3 %; Platelet Count 177 K/uL (130-400); RDW Coefficient of Variation 15.1 % (11.5-14.5); RDW Standard Deviation 48.4 fL (36.4-46.3); Red Blood Count 2.89 M/uL (4.2-5.4); White Blood Count 6.68 K/uL (4.8-10.8)
--- NOTE | 2019-02-01 07:56 | Orthopedic Progress Note ---
Date of Service February 01, 2019 Assessment & Plan (1) Intertrochanteric fracture: POD#2 Right TFN -Pain management -DVT prophylaxis-SCDs, aspirin 81mg BID -PT/OT-WBAT right LE A.m. labs, hemoglobin is stable at 8.4 -D/C planning. Subjective Patient is POD#2 right TFN. Does have a history of dementia. Answers some questions appropriately. Denies any hip pain, no chest pain shortness of breath dizziness. Review of Systems Review of Systems: All systems reviewed & are unremarkable except as noted in HPI & below Physical Exam Physical Exam: Patient is seen resting in bed comfortably. Dressings to right hip are clean, dry, and intact. Calves are soft and nontender. Toes are mobile. Distally neurovascularly intact, sensation intact. Results & Data Vital Signs (Past 12 Hours) Vital Signs Temp Pulse Resp BP Pulse Ox 02/01/19 06:30 36.7 C 77 16 115/68 97 01/31/19 22:52 36.9 C 79 16 104/63 93 (1) Intertrochanteric fracture Encounter type: initial encounter Fracture alignment: nondisplaced Fracture type: closed Laterality: right Qualified Code(s): S72.144A - Nondisplaced intertrochanteric fracture of right femur, initial encounter for closed fracture
[2019-02-01 08:11] LABS: Mean Corpuscular Hgb Conc 33.6 g/dL (32-36)
[2019-02-01 08:17] LABS: Albumin Level 2.6 gm/dl (3.4-5.0); BUN Creatinine Ratio 30.8 (10-20); Calcium 8.5 mg/dl (8.5-10.1); Creatinine Clr Calc Pharmacy 59.6 ml/min; Est GFR (African American) 95.5; Est GFR (Non-African American) 82.4; Magnesium 1.7 mg/dl (1.8-2.4); Potassium 3.6 mmol/L (3.5-5.1)
[2019-02-01 08:20] LABS: Albumin Globulin Ratio 0.8 (0.9-2); Bilirubin,Total 0.4 mg/dl (0.2-1); Globulin 3.1 gm/dl (2.5-4.0); Total Protein 5.7 gm/dl (6.4-8.2)
[2019-02-01] MEDS: OXYCODONE HCL IR 5 MG TAB (IMMEDIATE RELEASE) PO PRN (08:32)
[2019-02-01] MEDS: MULTIVITAMIN TAB PO SCH (08:32)
[2019-02-01] MEDS: MAGNESIUM OXIDE 400 MG TAB PO SCH (08:32)
[2019-02-01] MEDS: ASPIRIN 81 MG ECTAB PO SCH ×2 (08:32→21:08)
[2019-02-01] MEDS: INSULIN ASPART 100 UNITS/ML 3 ML PEN SC SCH ×4 (08:33→22:06)
[2019-02-01] MEDS: methIMAzole 5 MG TABLET PO SCH (08:33)
[2019-02-01] MEDS: FERROUS SULFATE 325 MG TAB PO SCH (08:33)
[2019-02-01] MEDS: dilTIAZem ER 120 MG CAPCR PO SCH (08:33)
--- NOTE | 2019-02-01 10:26 | Hospitalist Progress Note ---
Date of Service February 01, 2019 Assessment & Plan (1) Intertrochanteric fracture: Right hip intertrochanteric fracture (closed fracture of right hip); s/p Right hip open reduction internal fixation intertrochanteric fracture with repair -s/p Right hip open reduction internal fixation intertrochanteric fracture with repair (Synthes trochanteric nail size 11 mm x 235 mm with an 11 mm x 95 mm titanium helical blade and a 5 mm x 42 mm locking screw) on 01/30/19 -pain medication: acetaminophen every 8 hours on a scheduled basis due to patient's history of dementia that she may not know how to ask for pain control, oxycodone prn for moderate pain, dilaudid prn for severe pain -bowel regimen -PT/OT chronic Anemia acute blood loss anemia -anemia prior to surgery, -mildly low iron -postop Hgb 10.2 to 8.3 -no need to transfuse PRBC at this time -give venofer x 1 on 01/31/19 and started ferritin daily Hypomagnesemia -serum magnesium 1.4 on admission -try to target serum magnesium level of 2 with oral and IV magnesium -continue oral magnesium supplements Severe Dementia, without behavioral disturbance -has bed alarm -patient room is near nursing station Absence of upper teeth -recently upper teeth were pulled as outpatient so patient can be fitted for dentures -patient has had problems with using dentures in the past as per patient's daughter due to recent gum inflammation -soft, bite sized diet Echocardiogram does not show any valvular prolapse history of paroxysmal atrial fibrillation, because she had episode of atrial fibrillation in the past when she had cholangitis -heart rate and rhythm are regular -continue home dose diltiazem -no abdominal pain 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 Patient is cooperative on physical exam. She then asks "where am I" and medical doctor explained to her that she is in the hospital. denies acute pain. denies shortness of breath or dizziness. history of severe dementia. however, nursing reported that patient able to use the walker with cues. Physical Exam Constitutional: comfortable Eyes: EOM intact bilaterally ENMT: upper teeth missing Neck: normal visual inspection Respiratory: normal respiratory effort, lungs clear to auscultation Cardiovascular: Rate/Rhythm: regular rate and regular rhythm Gastrointestinal (Abdomen): Inspection/Auscultation: normal bowel sounds Percussion/Palpation: abdomen soft Musculoskeletal: Head/Neck/Chest: normocephalic and head atraumatic right hip dressing in place Neurologic: PERRL, EOMI, accommodation nl, no face palsy, no dysarthria Psychiatric: Orientation: alert and cooperative Results & Data Vital Signs (Past 12 Hours) Vital Signs Temp Pulse Resp BP Pulse Ox 02/01/19 06:30 36.7 C 77 16 115/68 97 01/31/19 22:52 36.9 C 79 16 104/63 93 (1) Intertrochanteric fracture Encounter type: initial encounter Fracture alignment: nondisplaced Fracture type: closed Laterality: right Qualified Code(s): S72.144A - Nondisplaced intertrochanteric fracture of right femur, initial encounter for closed fracture
[2019-02-01] MEDS: MAGNESIUM SULFATE / D5W 1 GM/100 ML BAG IV SCH ×2 (11:16→13:44)
[2019-02-01] MEDS: POLYETHYLENE (MIRALAX) 17 GM PACK PO PRN (17:23)
[2019-02-02 05:52] LABS: BUN Creatinine Ratio 31.3 (10-20); Calcium 8.2 mg/dl (8.5-10.1); Creatinine Clr Calc Pharmacy 61.7 ml/min; Est GFR (African American) 96.6; Est GFR (Non-African American) 83.4; Magnesium 1.9 mg/dl (1.8-2.4); Potassium 3.9 mmol/L (3.5-5.1)
[2019-02-02] MEDS ORDERED: MAGNESIUM SULFATE / D5W 1 GM/100 ML BAG IV ONE (07:45)
[2019-02-02] MEDS: FERROUS SULFATE 325 MG TAB PO SCH (08:14)
[2019-02-02] MEDS: MULTIVITAMIN TAB PO SCH (08:14)
[2019-02-02] MEDS: MAGNESIUM OXIDE 400 MG TAB PO SCH (08:14)
[2019-02-02] MEDS: methIMAzole 5 MG TABLET PO SCH (08:14)
[2019-02-02] MEDS: ACETAMINOPHEN 325 MG TAB PO SCH (08:14)
[2019-02-02] MEDS: ASPIRIN 81 MG ECTAB PO SCH (08:14)
[2019-02-02] MEDS: dilTIAZem ER 120 MG CAPCR PO SCH (08:14)
[2019-02-02] MEDS: INSULIN ASPART 100 UNITS/ML 3 ML PEN SC SCH ×2 (08:46→13:01)
[2019-02-02] MEDS: POLYETHYLENE (MIRALAX) 17 GM PACK PO PRN (12:48)
--- NOTE | 2019-02-02 14:11 | Orthopedic Progress Note ---
Date of Service February 02, 2019 Assessment & Plan (1) Intertrochanteric fracture: POD#3 Right TFN -Pain management -DVT prophylaxis-SCDs, aspirin 81mg BID -PT/OT-WBAT right LE A.m. labs, hemoglobin is stable at 8.4 -D/C planning. Pt Orthopedically stable. Ortho will sign off at this time. Instructions placed in EMR discharge. Please call with any questions. Subjective Pt lying in bed sleeping but easily awoken. No complaints today. States that her hip has not been bothering her. Physical Exam Physical Exam: Dressings C/D/I. Calves soft, NT. NV intact. Results & Data Vital Signs (Past 12 Hours) Vital Signs Temp Pulse Resp BP Pulse Ox 02/02/19 06:56 36.5 C 86 16 121/70 96 (1) Intertrochanteric fracture Encounter type: initial encounter Fracture alignment: nondisplaced Fracture type: closed Laterality: right Qualified Code(s): S72.144A - Nondisplaced intertrochanteric fracture of right femur, initial encounter for closed fracture
--- NOTE | 2019-02-02 14:43 | Hospitalist Progress Note ---
Date of Service February 02, 2019 Assessment & Plan (1) Intertrochanteric fracture: Right hip intertrochanteric fracture (closed fracture of right hip); s/p Right hip open reduction internal fixation intertrochanteric fracture with repair -s/p Right hip open reduction internal fixation intertrochanteric fracture with repair (Synthes trochanteric nail size 11 mm x 235 mm with an 11 mm x 95 mm titanium helical blade and a 5 mm x 42 mm locking screw) on 01/30/19 -was given pain medications and bowel regimen and was evaluated by PT/OT on this hospital stay -Patient is discharged to [facility] Code status: DO NOT INTUBATE but allows for CHEST COMPRESSION AND DEFIBRILLATION Discharge prescriptions aspirin 81 mg BID for 4 weeks as per orthopedics as blood thinner after surgery to prevent blood clots [place] PDMP was reviewed and no active controlled medications prior to this hospital stay Because patient had right hip fracture and repair patient may take acetaminophen 325 mg every 6 hours as needed for mild pain or fever; prescription made for oxycodone 5 mg every 6 hours as needed for moderate to severe pain (16 tablets prescribed Patient should take iron supplement (ferrous sulfate) daily for anemia Patient should take magnesium 400 mg daily for next 10 days for hypomagnesemia Patient should follow up with a primary care doctor for recheck of CBC and basic metabolic panel including serum magnesium levels Patient should follow up with orthopedics as instructed in orthopedic instructions chronic Anemia acute blood loss anemia -anemia prior to surgery, -mildly low iron -postop Hgb 10.2 to 8.3 -no need to transfuse PRBC at this time -give venofer x 1 on 01/31/19 and started oral iron, continue oral iron daily Hypomagnesemia -serum magnesium 1.4 on admission -try to target serum magnesium level of 2 with oral and IV magnesium -discharge day serum magnesium 1.9, patient received IV magnesium continued on daily oral magnesium Severe Dementia without behavioral disturbance -has bed alarm -patient room is near nursing station Absence of upper teeth -recently upper teeth were pulled as outpatient so patient can be fitted for dentures -patient has had problems with using dentures in the past as per patient's daughter due to recent gum inflammation -soft, bite sized diet Echocardiogram does not show any valvular prolapse history of paroxysmal atrial fibrillation, because she had episode of atrial fibrillation in the past when she had cholangitis -heart rate and rhythm are regular -continue home dose diltiazem -no abdominal pain Type 2 diabetes mellitus without fdc use of insulin -insulin sliding scale while in the hospital -Hba1c 5.5 -continue fenofibrate -patient may resume home dose metformin on discharge History of hyperthyroidism -TSH 1.37 which is in euthyroid range -Continue methimazole Code status: DO NOT INTUBATE but allows for CHEST COMPRESSION AND DEFIBRILLATION DVT ppx: aspirin BID as per orthopedics for DVT prophylaxis Daughter Vielka [phone] Daughter Toya [phone] Son [phone] Discharge diagnosis Right hip intertrochanteric fracture (closed fracture of right hip); s/p Right hip open reduction internal fixation intertrochanteric fracture with repair ; Hypomagnesemia; Severe Dementia, without behavioral disturbance; Type 2 diabetes mellitus without fdc use of insulin, Anemia Subjective Patient seen and examined at bedside. because of her dementia she is not aware that she had right hip surgery. she denies acute pain. she denies any symptoms. breathing on room air. no shortness of breath.she has been able to ambulate with walker and supervision to go to the commode. Patient has [facility] for hospital discharge Physical Exam Constitutional: comfortable Eyes: EOM intact bilaterally Neck: normal visual inspection Respiratory: normal respiratory effort, lungs clear to auscultation Cardiovascular: Rate/Rhythm: regular rate and regular rhythm Gastrointestinal (Abdomen): Inspection/Auscultation: normal bowel sounds Percussion/Palpation: abdomen soft Musculoskeletal: Head/Neck/Chest: normocephalic and head atraumatic Skin: + incision (right hip surgical incission with dressing) Neurologic: PERRL, EOMI, accommodation nl, no face palsy, no dysarthria Psychiatric: Orientation: alert and cooperative Results & Data Vital Signs (Past 12 Hours) Vital Signs Temp Pulse Resp BP Pulse Ox 02/02/19 06:56 36.5 C 86 16 121/70 96 (1) Intertrochanteric fracture Encounter type: initial encounter Fracture alignment: nondisplaced Fracture type: closed Laterality: right Qualified Code(s): S72.144A - Nondisplaced intertrochanteric fracture of right femur, initial encounter for closed fracture
--- NOTE | 2019-02-02 14:49 | Discharge Summary ---
Date of Service February 02, 2019 Admission HPI Per Admitting Provider DATE OF ADMISSION: 01/29/2019 CHIEF COMPLAINT: Right hip fracture, ambulatory dysfunction. HISTORY OF PRESENT ILLNESS: This is an 88-year-old female with past medical history significant for severe dementia, oriented to name only, recognizes family. Ambulates without any help. Currently [facility] resident, history of diabetes, hyperlipidemia, history of brief episode of atrial fibrillation recently, on diltiazem, not on anticoagulation, who was brought in because of ambulatory dysfunction. The patient started to limp yesterday little bit but able to walk okay, but today she was having difficulty ambulating and have painful right leg movements, so she was brought in here and x-ray shows right hip fracture. The patient does not remember any falling down. She has severe dementia. She can tell her name, but she does not know where she is. Can recognizes family.Denies any complaints. Daughter is in the room, patient is a DNI as per daughter. The patient recently was in [place] for vacation and admitted to hospital from sepsis with urinary tract infection and biliary stones with cholangitis and at that time biliary stents were placed and surgery was not done because of her risk factors and biliary stent was recently removed here in [facility]. During that admission, she also had brief atrial fibrillation for a day, but was not put on anticoagulation but diltiazem is continued. She recently also had her upper row of teeth removed and dentures placed so she is eating only soft foods now and she is supposed to see a dentist again. Otherwise, she swallows okay. No fever, no chills. Sleeps okay, usually ambulates without any help. Recently the ambulation was slightly weak because of the recent sepsis. She is constipated and requires stool softeners. Normal bladder movements. Afebrile. No cough. Vision is okay. Hearing is okay. Currently resting comfortably and hemodynamically stable. Denies any pain. Could not get any history from the patient as the patient has severe dementia. ALLERGIES: ACTONEL AND PENICILLINS. PAST MEDICAL HISTORY: As mentioned above. PAST SURGICAL HISTORY: She has ERCP. She has total hysterectomy. Surgical removal of the upper teeth. MEDICATIONS: The patient currently on diltiazem 120 mg p.o. daily, Colace 100 mg p.o. daily p.r.n., Ensure 1 can p.o. b.i.d., fenofibrate 160 mg p.o. a.m., Imodium p.r.n., metformin 1000 mg p.o. a.m., methimazole 5 mg p.o. 5 times a week and methimazole 2.5 mg 2 times a week, multivitamin 1 tablet daily, Senokot-S 2 tablets daily p.r.n. FAMILY HISTORY: Father had diabetes. Mother had stroke. Brother had diabetes. SOCIAL HISTORY: , currently living at [facility]. No smoking history. Alcohol, used to drink 1, rarely in the past. No drug use. REVIEW OF SYMPTOMS: As per HPI. Review of systems unobtainable as the patient has severe dementia. Admission Exam Per Admitting Provider PHYSICAL EXAMINATION: GENERAL: The patient is alert and awake and oriented to name only, not in acute distress. VITAL SIGNS: Temperature 37.1, pulse 85, respiratory rate 18, blood pressure 111/71, oxygen 94% room air. HEENT: No pallor, no icterus. Pupils equal, round, reactive to light. NECK: No JVD, no neck masses, no carotid bruits. CARDIOVASCULAR: S1, S2 heard, regular rate and rhythm. Murmur in mitral area. RESPIRATORY SYSTEM: Normal AP diameter. No accessory muscle use. No wheezing, no crackles. ABDOMEN: Soft, bowel sounds present, nontender. No distention. CENTRAL NERVOUS SYSTEM: Alert and oriented to name only. Moves extremities. EXTREMITIES: Right lower extremity is slightly shortened. No edema, no erythema seen. Principal Diagnosis Right hip intertrochanteric fracture (closed fracture of right hip); s/p Right hip open reduction internal fixation intertrochanteric fracture with repair ; Hypomagnesemia; Severe Dementia, without behavioral disturbance; Type 2 diabetes mellitus without detention use of insulin, Anemia Discharge Exam Constitutional comfortable Eyes EOM intact bilaterally Neck normal visual inspection Respiratory normal respiratory effort, lungs clear to auscultation Cardiovascular Rate/Rhythm: regular rate and regular rhythm Gastrointestinal (Abdomen) Inspection/Auscultation: normal bowel sounds Percussion/Palpation: abdomen soft Musculoskeletal Head/Neck/Chest: normocephalic and head atraumatic Skin + incision (right hip surgical incission with dressing) Neurologic PERRL, EOMI, accommodation nl, no face palsy, no dysarthria Psychiatric Orientation: alert and cooperative Discharge Data Allergies Allergy/AdvReac Type Severity Reaction Status Date / Time Penicillins Allergy Intermediate HIVES Verified 01/29/19 18:25 risedronate sodium AdvReac Intermediate GI SYMPTOMS Verified 01/29/19 18:25 Consultations 01/29/19 19:58 ED Decision to Admit Stat 01/29/19 22:05 Consult Case Management - Discharge Planning Routine 01/30/19 08:00 Consult Orthopedic Surgery Routine 01/30/19 15:43 Consult Case Management - Discharge Planning Routine Procedures Performed Operation Date: 01/30/19 12:10 Actual Procedures p Right Intertrochanteric Nail(Right) - Enrique Escalante, Ordered Studies 01/29/19 18:03 CT head/brain wo con Stat 01/29/19 21:00 CT hip RT wo con Urgent 01/30/19 12:00 FL fluoroscopy <1hr Routine FL hip RT 2-3V Routine Hospital Course (1) Intertrochanteric fracture: Right hip intertrochanteric fracture (closed fracture of right hip); s/p Right hip open reduction internal fixation intertrochanteric fracture with repair -s/p Right hip open reduction internal fixation intertrochanteric fracture with repair (Synthes trochanteric nail size 11 mm x 235 mm with an 11 mm x 95 mm titanium helical blade and a 5 mm x 42 mm locking screw) on 01/30/19 -was given pain medications and bowel regimen and was evaluated by PT/OT on this hospital stay -Patient is discharged to [facility] Code status: DO NOT INTUBATE but allows for CHEST COMPRESSION AND DEFIBRILLATION Discharge prescriptions aspirin 81 mg BID for 4 weeks as per orthopedics as blood thinner after surgery to prevent blood clots [place] PDMP was reviewed and no active controlled medications prior to this hospital stay Because patient had right hip fracture and repair patient may take acetaminophen 325 mg every 6 hours as needed for mild pain or fever; prescription made for oxycodone 5 mg every 6 hours as needed for moderate to severe pain (16 tablets prescribed Patient should take iron supplement (ferrous sulfate) daily for anemia Patient should take magnesium 400 mg daily for next 10 days for hypomagnesemia Patient should follow up with a primary care doctor for recheck of CBC and basic metabolic panel including serum magnesium levels Patient should follow up with orthopedics as instructed in orthopedic instructions chronic Anemia acute blood loss anemia -anemia prior to surgery, -mildly low iron -postop Hgb 10.2 to 8.3 -no need to transfuse PRBC at this time -give venofer x 1 on 01/31/19 and started oral iron, continue oral iron daily Hypomagnesemia -serum magnesium 1.4 on admission -try to target serum magnesium level of 2 with oral and IV magnesium -discharge day serum magnesium 1.9, patient received IV magnesium continued on daily oral magnesium Severe Dementia without behavioral disturbance -has bed alarm -patient room is near nursing station Absence of upper teeth -recently upper teeth were pulled as outpatient so patient can be fitted for dentures -patient has had problems with using dentures in the past as per patient's daughter due to recent gum inflammation -soft, bite sized diet Echocardiogram does not show any valvular prolapse history of paroxysmal atrial fibrillation, because she had episode of atrial fibrillation in the past when she had cholangitis -heart rate and rhythm are regular -continue home dose diltiazem -no abdominal pain Type 2 diabetes mellitus without manager cardiology use of insulin -insulin sliding scale while in the hospital -Hba1c 5.5 -continue fenofibrate -patient may resume home dose metformin on discharge History of hyperthyroidism -TSH 1.37 which is in euthyroid range -Continue methimazole Code status: DO NOT INTUBATE but allows for CHEST COMPRESSION AND DEFIBRILLATION DVT ppx: aspirin BID as per orthopedics for DVT prophylaxis Daughter Vielka [phone] Daughter Toya [phone] Son [phone] Discharge diagnosis Right hip intertrochanteric fracture (closed fracture of right hip); s/p Right hip open reduction internal fixation intertrochanteric fracture with repair ; Hypomagnesemia; Severe Dementia, without behavioral disturbance; Type 2 diabetes mellitus without detention use of insulin, Anemia Total Time Total Time Spent Total Time Spent (In Minutes): 40 minutes Total Time Includes: Examination of the Patient, Discharge Planning, Medication Reconciliation and Communication With Other Providers Discharge Plan Discharge Items Patient Disposition: Transfer Shelter Fac Reason For Visit: RIGHT HIP FRACTURE Discharge Diagnosis: Right hip intertrochanteric fracture (closed fracture of right hip); s/p Right hip open reduction internal fixation intertrochanteric fracture with repair ; Hypomagnesemia; Severe Dementia, without behavioral disturbance; Type 2 diabetes mellitus without detention use of insulin, Anemia Condition on Discharge: Good Activity: Per Instructions section Weightbearing: Right weightbearing Weightbearing Comment: as tolerated with walker Non-emergency contact: Surgeon Call non-emergency contact if: your pain is not controlled, your temperature is above 101.5, your wound has increased redness and your wound has increased drainage Follow-up/Referrals: DEBORAH VALENTINE [Primary Care Provider] - Diet: Carb Consistent or DM2 Diet Texture: Dental soft (bite-sized) Addtl Attending Provider Instructions: Patient is discharged to [facility] Code status: DO NOT INTUBATE but allows for CHEST COMPRESSION AND DEFIBRILLATION Discharge prescriptions aspirin 81 mg BID for 4 weeks as per orthopedics as blood thinner after surgery to prevent blood clots [place] PDMP was reviewed and no active controlled medications prior to this hospital stay Because patient had right hip fracture and repair patient may take acetaminophen 325 mg every 6 hours as needed for mild pain or fever; prescription made for oxycodone 5 mg every 6 hours as needed for moderate to severe pain (16 tablets prescribed Patient should take iron supplement (ferrous sulfate) daily for anemia Patient should take magnesium 400 mg daily for next 10 days for hypomagnesemia Patient should follow up with a primary care doctor for recheck of CBC and basic metabolic panel including serum magnesium levels Patient should follow up with orthopedics as instructed in orthopedic instructions Addtl Identification And Records Commander Provider Instructions: [facility] DISCHARGE INSTRUCTIONS: HIP FRACTURE SELF CARE INSTRUCTIONS: A. You are to ambulate with a walker or crutches for approximately 6 weeks. B. You are WEIGHT BEARING TOLERATED on your operative lower extremity for at least 6 weeks. C. Wear low heeled shoes with non-slip soles D. Be sure that your floors are free of things that could trip you throw rugs, electrical cords, and small objects. Avoid wet and waxed floors, especially with crutches/walker/cane. E. Try to walk several times a day with rest periods between. F. You may shower 48 hours after surgery and get the incision area wet, but DO NOT soak or submerge incision area in water. (No baths, swimming pools, hot tubs) G. You may have a large, band-aid like dressing over your incision (Aquacel). This will remain on your incision for 7 days, and then can be removed. You CAN shower with this on. If incision is leaking through the dressing, please call the office . H. Do NOT apply soap or any ointment/lotions directly over incision. I. You may use ice as needed to operative site. SPECIAL CARE INSTRUCTIONS: VERY IMPORTANT TO READ AND REVIEW A. You may be at risk for phlebitis or blood clots. a. Wear surgical stockings (DERRELL hose) for 2 weeks after surgery to improve circulation and reduce swelling. b. Take ASPIRIN 81mg BID for 4 weeks or as directed. This is your blood thinner. c. If you are on Coumadin- you will have daily/weekly blood work to monitor your levels. This will be done by either your family physician/commodities clerk (if you are on Coumadin chronically) versus your orthopedic surgeon. Expect a phone call the day of or the day after your blood work is drawn to adjust your dose accordingly. B. There are a few signs you need to watch for after you are home. Call [facility] at [phone] if you experience any of the following: a. If you have a temperature of 101 degrees or higher. b. Sudden increase in pain in your hip not relieved by rest or pain medication. c. Any fluid or drainage from the incision; redness of the incision. d. Shortness of breath or chest pain. C. Call your physician if: a. Temperature is greater than 101 degrees (F). b. Pain is not relieved by prescribed pain medications. c. Increase drainage or redness from incision. d. Unanswered questions or concerns. D. Pain Medication: a. You will be prescribed pain medication upon discharge that should last till your first post-operative appointment. b. If you experience nausea and/or skin rash, discontinue this medication and contact our office for an alternative m edication. c. Caution- narcotic pain medication can cause constipation. FOLLOW UP VISIT: Please call [facility] at [phone] to schedule a follow up appointment 10-14 days from the date of your surgery date with Dr Escalante. Pending Studies at Discharge: No Stand-Alone Forms: My [facility] Concert Window Skilled Items Patient informed of condition?: Yes DNR: No (conditional code status) Discharge Level of Care: Skilled Communicable Disease: No Discharge Prognosis: Stable Lines: None Urinary Catheter: No Medications and DC Order Prescriptions: New acetaminophen 325 mg tablet 325 mg PO Q6H 5 Days Qty: 20 RF: 0 aspirin [Ecotrin Low Strength] 81 mg Tablet,Delayed Release (Dr/Ec) 81 mg PO BID 28 Days Qty: 56 RF: 0 ferrous sulfate 325 mg (65 mg iron) Tablet,Delayed Release (Dr/Ec) 325 mg PO QAM 30 Days Qty: 30 RF: 0 oxycodone 5 mg Tablet 5 mg PO Q6H PRN (Reason: moderate to severe pain) 4 Days Qty: 16 RF: 0 magnesium oxide 400 mg (241.3 mg magnesium) Tablet 400 mg PO QAM 10 Days Qty: 10 RF: 0 Continued multivitamin [Daily-Pierre] Tablet 1 tab PO DAILY RF: 0 loperamide [Imodium A-D] 2 mg Capsule 2 mg PO BID PRN (Reason: Diarrhea) RF: 0 metformin 1,000 mg Tablet 1,000 mg PO QAM RF: 0 methimazole 5 mg Tablet 5 mg PO 5XWK RF: 0 fenofibrate 160 mg Tablet 160 mg PO QAM RF: 0 sennosides-docusate sodium [Senna-S] 8.6-50 mg Tablet 2 tab PO DAILY PRN (Reason: Constipation) RF: 0 diltiazem HCl 120 mg capsule,extended release 24 hr 120 mg PO QAM RF: 0 methimazole 5 mg Tablet 2.5 mg PO 2XWK RF: 0 docusate sodium [Doc-Q-Lace] 100 mg Capsule 100 mg PO DAILY PRN (Reason: Constipation) RF: 0 Ensure Liquid 1 ea PO BID RF: 0 Discharge Orders: Discharge Order (Routine); Ordered 02/02/19 Ordered By: Jairo Schultz Admission Data Admit Date/Time: 01/29/19 21:00 Attending Provider: Jairo Schultz Admit Provider: Zhang Martin Primary Care Provider: DEBORAH VALENTINE Other Providers: Zhang Martin ; Enrique Escalante
--- NOTE | 2019-02-09 09:55 | Coding Query ---
CODING QUERY To promote full compliance with coding requirements relating to patient care, provider participation is requested in all cases of supercalender operator helper uncertainty. Please assist us with the question(s) below: Coding Question(s): There is documentation of right hip fracture after a fall and the ER and the Orthopedic Consultation show a history of Osteoporosis. Please clarify below, in your clinical opinion, regarding the right hip fracture. (x ) Fracture was likely due to trauma/fall ( ) Fracture was likely due to Osteoporosis (with a fall) ( ) Other: Please Specify Physician's Response(s): Thank you Laura Dowd Principal Diagnosis: "that condition established after study, to be chiefly responsible for occasioning the admission of the patient to the hospital for care." Co-Existing Principal Diagnosis: "when two or more diagnoses equally meet the criteria for principal diagnosis as determined by the circumstances of admission, diagnostic work up, and/or therapy provided, and the Alphabetic Index, Tabular List, or another coding guideline does not provide sequencing direction, any one of the diagnoses may be sequenced first." "When the physician has documented what appears to be a current diagnosis in the body of the record, but has not included the diagnosis in the final diagnostic statement, the physician should be asked whether the diagnosis should be added." (Source [facility]oding [facility] 2 QTR90. p3-4) SANDEEP
== END 2019-02-02 16:07 | DRG 481 ==
LOC: ED 17:36 → SUATTDRO 21:00 → 3E 21:00